=== PATIENT | male | born 1965 | race Caucasian/White ===

== ENCOUNTER 2024-06-20 13:14 | Outpatient (CLI) | payer OTHER, SELFPAY ==
--- NOTE | 2024-06-20 13:19 | CA_ITS ---
APPROVED REPORT EXAM: Comprehensive 2D, Doppler, and color-flow Echocardiogram Inside Sales Coordinator: Demi Arias RT(R) Ht: 5 ft 10 in Wt: 212lbs BSA: 2.14 BP: 109/74 mmHg Indications: COPD, lung nodule, RENO 2D Dimensions EF AP4 55.10 % GL Strain -12.1 % M-Mode Dimensions RVDd 3.34 cm (0.9-2.6) LA Diam 3.18 cm (1.9-4.0) LVDd 3.97 cm (3.5-5.7) LVDs 3.03 cm (3.5-5.7) IVSd 0.71 cm (0.6-1.1) PWd 0.71 cm (0.6-1.1) EF (Teich) 47.80% FS 23.70% EDV (Teich) 68.80 mL ESV (Teich) 35.90 mL LV Diastology E Decel Time 373 (160-240 msec) E/A Ratio 0.71 Mitral Valve MV A Velocity 57.0 (40-130 cm/s) E/A Ratio 0.71 Tricuspid Valve TR P. Velocity 351.00 cm/s RAP Estimate 10.00 mmHg RVSP 59.20 mmHg Left Ventricle The left ventricle is normal size. The left ventricular systolic function is low normal. There is increased LV wall thickness. Intermittent septal bounce is present. Transmitral Doppler flow pattern suggests impaired LV relaxation. LVEF is 50%. Right Ventricle Right ventricle is mildly dilated. Right ventricle is moderately hypokinetic. Atria The left atrium size is normal. The right atrium size is normal. There is no Doppler evidence of interatrial shunt. Aortic Valve The aortic valve is mildly thickened. There is no aortic valvular stenosis. No aortic regurgitation is present. Mitral Valve The mitral valve is normal in structure. No evidence of mitral valve stenosis. There is no mitral valve regurgitation noted. Tricuspid Valve The tricuspid valve leaflets are thin and pliable. Trace tricuspid regurgitation. RVSP is 45-50 mmHg. Pulmonic Valve The pulmonary valve is normal in structure. Trace pulmonic regurgitation. Great Vessels The aortic root is normal in size. The ascending aorta is not well-visualized. IVC is normal in size and collapses >50% with inspiration. Pericardium There is no pericardial effusion. Other Information Study Quality: Fair Conclusion Low normal LV systolic function (LVEF 50%). Intermittent septal bounce is present. Mild RV dilation with moderate reduction in RV function. No significant valvular stenosis or regurgitation. Elevated RVSP 45-50 mmHg. Further evaluation of RV dysfunction is suggested. The intermittent septal bounce may be suggestive of underlying constrictive pericarditis in the appropriate clinical setting. Clinical correlation is required. Electronically signed by : Marielena Todd MD 06/26/2024 13:03:21
--- NOTE | 2024-06-20 14:06 | CT_ITS ---
PROCEDURE INFORMATION: Exam: CT Chest With Contrast; Diagnostic Exam date and time: 06/20/2024 2:43 PM Age: 58 years old Clinical indication: Shortness of breath; Additional info: Copd, lung nodule, soboe TECHNIQUE: Imaging protocol: Diagnostic computed tomography of the chest with contrast. Radiation optimization: All CT scans at this facility use at least one of these dose optimization techniques: automated exposure control; mA and/or kV adjustment per patient size (includes targeted exams where dose is matched to clinical indication); or iterative reconstruction. Contrast material: ISOVUE; Contrast volume: 75 ml; Contrast route: IV; COMPARISON: No relevant prior studies available. FINDINGS: Lungs: Apical predominant moderate centrilobular emphysema. Scattered small spiculated nodules predominantly in the upper and mid lungs, for example measuring 14 x 15 mm in the right upper lobe, and 9 x 16 mm in the anterior left mid lung. Also present are scattered discrete and few confluent patchy opacities. Confluent interstitial reticular and geographic ground-glass opacities in the bilateral lower lobes.. Hqoe-ls-znyaoynb architectural distortion with associated bronchiectasis in the bilateral lower lobes. Pleural spaces: Unremarkable. No pneumothorax. No pleural effusion. Heart: Unremarkable. No cardiomegaly. No pericardial effusion. Lymph nodes: Several small calcified prevascular, bilateral hilar, and subcarinal nodes.. Vasculature: Unremarkable. No aortic aneurysm. Liver: Benign-appearing cyst in the inferior left hepatic lobe. No further follow-up needed. Upper abdomen otherwise unremarkable. Bones/joints: Unremarkable. No acute fracture. Soft tissues: Unremarkable. IMPRESSION: 1. Background moderate emphysema. 2. Scattered small spiculated nodules predominantly in the upper and mid lungs, for example measuring 14 x 15 mm in the right upper lobe, and 9 x 16 mm in the anterior left mid lung. Also present are scattered discrete and few confluent patchy opacities. Confluent interstitial reticular and geographic ground-glass opacities in the bilateral lower lobes. Azoh-so-siwfozoh architectural distortion with associated bronchiectasis in the bilateral lower lobes. These may be infectious (including atypical) or inflammatory. Underlying malignancy is not excluded. Please refer to prior studies if available. Recommend follow-up imaging to resolution. COMMENTS: The presence of pulmonary emphysema on CT is an independent risk factor for lung cancer. In the absence of a history or active diagnosis of lung cancer, it is recommended that this patient with emphysema be evaluated for enrollment in a low dose CT lung cancer screening program.
[2024-06-20 14:32] LABS: Blood Urea Nitrogen 12 mg/dl (9-20); Estimated Glomerular Filt Rate 99 ml/min (>60); GFR (African American) 120 ML/MIN (>60)
[2024-06-20] MEDS: IOPAMIDOL-370 (76%);100ML BOTTLE 75 ML IV (14:55)
[2024-06-20] MEDS: SODIUM CHLORIDE 0.9% 10ML SYR (RAD ONLY) 10 ML IV (14:55)
== END 2024-06-20 23:59 | disposition home or self-care (01) ==
LOC: RT 13:17
PROVIDERS: PCP Nurse Practitioner; Visit Provider Nurse Practitioner
DX: R06.02 Shortness of breath (principal); R91.1 Solitary pulmonary nodule; J44.9 Chronic obstructive pulmonary disease, unspecified; R93.1 Abnormal findings on diagnostic imaging of heart and coronary circulation
CPT/HCPCS: 71260; 82565; 84520; 93306; Q9967

== ENCOUNTER 2024-06-21 11:10 | Outpatient (CLI) | payer OTHER, SELFPAY ==
[2024-06-25 15:43] LABS: QuantiFERON-TB Gold Plus Negative (Negative)
== END 2024-06-21 23:59 | disposition home or self-care (01) ==
LOC: LAB 11:14
PROVIDERS: PCP Nurse Practitioner; Visit Provider Nurse Practitioner
DX: R93.89 Abnormal findings on diagnostic imaging of other specified body structures (principal); Z11.1 Encounter for screening for respiratory tuberculosis; Z78.9 Other specified health status; J44.9 Chronic obstructive pulmonary disease, unspecified; R06.02 Shortness of breath; Z72.0 Tobacco use
CPT/HCPCS: 36415; 86480; 87070; 87102; 87205; 87206

== ENCOUNTER 2024-06-27 12:21 | Outpatient (CLI) | payer OTHER, SELFPAY ==
[2024-06-27] MEDS: ALBUTEROL 0.083% 2.5 MG/3 ML NEB IH (13:33)
== END 2024-06-27 23:59 | disposition home or self-care (01) ==
LOC: RT 12:24
PROVIDERS: PCP Nurse Practitioner; Visit Provider Nurse Practitioner
DX: J44.9 Chronic obstructive pulmonary disease, unspecified (principal)
CPT/HCPCS: 94060; J7613

== ENCOUNTER 2024-09-12 14:27 | Observation (INO) | payer MEDICAID, SELFPAY ==
[2024-09-12] VITALS (11 sets, daily range): BP systolic 104–128; BP diastolic 70–92; PULSE 62–97; RESP 13–24; TEMP 36.5–37.1; O2SAT 79–99; BMI 30.1; BMI 30.9
--- NOTE | 2024-09-12 14:34 | [facility].EDCP ---
Discharge Plan Disposition Chief Complaint: Shortness of Breath/Dyspnea Prescriptions Prescriptions: No Action (DME) Aerochamber Plus Flow-Vu Spacer See Rx Instructions .ROUTE .MEDSUPPLY Qty: 1 Rx Instructions: As directed furosemide 40 mg tablet 40 mg PO DAILY PRN lisinopril 10 mg tablet 10 mg PO DAILY Patient Comments: TAKE 1 TABLET BY MOUTH DAILY. metoprolol succinate 25 mg tablet extended release 24 hr 25 mg PO DAILY Patient Comments: TAKE 1 TABLET BY MOUTH DAILY. albuterol sulfate 90 mcg/actuation HFA aerosol inhaler 2 puff inhalation Q4-6H PRN (Reason: shortness of breath or wheezing) Qty: 8.5 1RF aspirin 81 mg tablet,delayed release (DR/EC) 81 mg PO DAILY atorvastatin 20 mg tablet 20 mg PO DAILY Patient Comments: TAKE 1 TABLET BY MOUTH DAILY. dapagliflozin propanediol [Farxiga] 10 mg tablet 10 mg PO DAILY Qty: 90 1RF Trelegy Ellipta 100-62.5-25 mcg blister with device 1 inh inhalation DAILY Qty: 60 2RF Referrals Follow up/Referrals: Kandi Bernstein APRN [Primary Care Provider] - See instructions Print Language Print Language: Andorran Discharge ED Provider: Amado Ibarra [facility] <LAIS Angel - Last Filed: 09/12/24 14:37> General Chief Complaint: Shortness of Breath/Dyspnea Stated Complaint: SOA Time Seen by Provider: 09/12/24 14:32 Related Data Home Medications ?Medication ?Instructions ?Recorded ?Confirmed inhalational spacing device #1 ea 11/21/23 08/09/24 (Aerochamber Plus Flow-Vu) aspirin 81 mg tablet,delayed 81 mg PO DAILY 06/06/24 08/09/24 release atorvastatin 20 mg tablet 20 mg PO DAILY 06/06/24 08/09/24 furosemide 40 mg tablet 40 mg PO DAILY PRN 06/06/24 08/09/24 lisinopril 10 mg tablet 10 mg PO DAILY 06/06/24 08/09/24 metoprolol succinate 25 mg 25 mg PO DAILY 06/06/24 08/09/24 tablet,extended release 24 hr Previous Rx's ?Medication ?Instructions ?Recorded albuterol sulfate 90 mcg/actuation 2 puff inhalation Q4-6H PRN 12/13/24 aerosol inhaler shortness of breath or wheezing #8.5 grams dapagliflozin propanediol 10 mg 10 mg PO DAILY #90 tabs 08/19/24 tablet (Farxiga) fluticasone fur. 100 mcg-umeclid 1 inh inhalation DAILY #60 ea 09/02/24 62.5 mcg-vilant 25 mcg inhalat.powder (Trelegy Ellipta) Allergies Allergy/AdvReac Type Severity Reaction Status Date / Time No Known Allergies Allergy Verified 08/09/24 10:38 <Amado Ibarra MD - Last Filed: 09/12/24 15:52> General Mode of Arrival: Ambulatory Source of Information: Patient Limitations: No Limitations History of Present Illness HPI narrative: This is a 59-year-old male with a past medical history of COPD on 2.5 L nasal cannula chronically and interstitial lung disease who presents with shortness of breath. States that he has had worsening shortness of breath for the last week. Denies fever. Reports cough. Has been using nebulizer treatments at home more frequently. [facility] <ALIS Angel - Last Filed: 09/12/24 14:37> [facility] Disclaimer: The information contained in this section may have been updated after the patient was seen, as this information can be updated by other users. Medical History (Updated 08/09/24 @ 11:09 by Yasmin Ingram MD) Pleural thickening Multiple lung nodules on CT Pulmonary emphysema Paraseptal emphysema History of incarceration Abnormal CT of the chest Lung nodule SOBOE (shortness of breath on exertion) Dependence on nocturnal oxygen therapy ILD (interstitial lung disease) Abnormal echocardiogram Hypertension COPD (chronic obstructive pulmonary disease) Prediabetes Surgical History No history of previous surgery Family History Grandmother Cancer Grandfather Cancer Father Heart attack Social History Smoking Status: Former smoker alcohol intake: former current occupational status: employed Travel in the last 8 weeks: Inside the [place] Have you lived/traveled outside US in past 30 days?: No Contact w/someone who lives/traveled outside US past 30 days?: No Exposure to someone with infectious disease in past 14 days?: No Do you have a fever (greater than 100.4 F or 38 C)?: No Have you tested positive for COVID-19: No Exposed to someone with COVID-19 in past 14 days?: No Do you have a sore throat?: No Do you have a cough?: No Do you have any weakness?: No Do you have any diarrhea?: No Are you experiencing any unusual bleeding?: No Do you have any muscle aches/pain?: No Do you have any abdominal pain?: No Are you experiencing loss of taste or smell?: No Other Medical History Have you received the Pneumonia Vaccine: Yes <ALIS Angel - Last Filed: 09/12/24 14:37> ROS Obtained: Yes Systems reviewed as appropriate & no additional complaints except as documented Physical Exam <ALIS Angel - Last Filed: 09/12/24 14:37> General General appearance: alert and in no apparent distress Head Head exam: atraumatic and normal inspection Eye Eye exam: Present normal appearance, PERRL and EOMI ENT ENT exam: Present normal exam, normal oropharynx and mucous membranes moist Neck Neck exam: Present normal inspection, full ROM and trachea midline; Absent lymphadenopathy Chest Chest inspection: Present normal inspection and symmetric chest wall rise Respiratory Respiratory exam: Present normal lung sounds bilaterally; Absent accessory muscle use Cardiovascular Cardiovascular exam: Present regular rate, normal rhythm, normal heart sounds, +S1 and +S2 Abdominal Exam Abdominal exam: Present soft and normal bowel sounds; Absent tenderness, guarding or rebound Extremities Exam Extremities exam: Present normal inspection and full ROM Neurological Exam Neurological exam: Present alert, oriented X3 and CN II-XII intact Psychiatric Psychiatric exam: Present normal affect and normal mood Skin Skin exam: Present warm, dry and normal color Lymphatic Lymphatic Findings: no adenopathy <Amado Ibarra MD - Last Filed: 09/12/24 15:52> General General appearance: alert Comment: Appears to be in respiratory distress, tripoding Respiratory Respiratory exam: Present respiratory distress (Diminished lung sounds bilaterally, and expiratory wheezing) HEART Score <Amado Ibarra MD - Last Filed: 09/12/24 15:52> HEART Score HEART Score assessment performed?: No Critical Care <Amado Ibarra MD - Last Filed: 09/12/24 15:52> Critical Care Time Critical Care Time: No Medical Decision Making <ALIS Angel - Last Filed: 09/12/24 14:37> Vital Signs Vital Signs: 09/12/24 14:30 09/12/24 15:00 09/12/24 15:30 Temperature 98.8 F Temperature Source Oral Pulse Rate 92 H 90 Pulse Rate [Right] 97 H Respiratory Rate 24 Blood Pressure 118/85 123/80 Blood Pressure [Right Arm] 104/74 L Blood Pressure Mean [Right Arm] 84 02 Sat by Pulse Oximetry 79 L 94 L 98 Oxygen Delivery Method Room Air Nasal Cannula Nasal Cannula Oxygen Flow Rate (LPM) 2.5 2.5 Lab Data Labs: Lab Results 09/12/24 14:37: VBG pH 7.38, VBG pCO2 60.8 H, VBG pO2 52.5 H, VBG HCO3 35.2 H, VBG Total CO2 37.0 H, VBG O2 Saturation 87.5 H, VBG Base Excess 10.0 H, VBG Lactic Acid 2.0 09/12/24 14:54: WBC 8.0, RBC 4.84, Hgb 13.1 L, Hct 43.7, MCV 90.3, MCH 27.1, MCHC 30.0 L, RDW 14.2, Plt Count 208, MPV 9.7, Neut % (Auto) 73.9, Lymph % (Auto) 7.2 L, Vigo % (Auto) 8.2, Eos % (Auto) 9.5, Baso % (Auto) 0.6, Neut # (Auto) 5.9, Lymph # (Auto) 0.6 L, Vigo # (Auto) 0.7, Eos # (Auto) 0.8 H, Baso # (Auto) 0.1, Sodium 138, Potassium 3.9, Chloride 96 L, Carbon Dioxide 39 H, Anion Gap 6.9, BUN 17, Creatinine 0.80, Estimated Creat Clear 132, Estimated GFR 99, Est GFR ( Amer) 119, Glucose 163 H, Calcium 9.2, Total Bilirubin 0.6, AST 29, ALT 20, Alkaline Phosphatase 65, Total Protein 6.7, Albumin 3.5, Globulin 3.2, Albumin/Globulin Ratio 1.1 09/12/24 14:54 09/12/24 14:54 Response Orders (Tests/Meds): ED MEDICATIONS Discontinued Medications Generic Name Dose Route Start Last Admin Trade Name Randal PRN Reason Stop Dose Admin Albuterol/Ipratropium 9 ml 09/12/24 14:37 09/12/24 15:15 Ipratropium/Albuterol 3 Ml Neb IH 09/12/24 14:38 9 ml ONCE ONE Administration Methylprednisolone Sodium Succinate 125 mg 09/12/24 14:37 09/12/24 15:15 Methylprednisolone Sod Succ 125mg Vial IV 09/12/24 14:38 125 mg ONCE ONE Administration ORDERS Category Date Time Status Chest XR 2 view (NOT portable) [XR chest 2V] Stat Exams 09/12/24 14:37 Completed CBC w/Auto Diff [Complete Blood Count Auto Diff] Stat Lab 09/12/24 14:54 Completed CMP [Comprehensive Metabolic Panel] Stat Lab 09/12/24 14:54 Completed HIV Combo Routine Lab 09/12/24 14:54 Received Hepatitis C Ab Qual. W/ RFX Routine Lab 09/12/24 14:54 Received VBG [Venous Blood Gas] Stat RT 09/12/24 14:37 Completed <Amado Ibarra MD - Last Filed: 09/12/24 15:52> Medical Records Medical records reviewed: Yes I reviewed the patient's medical records. MR Comment: Pulmonology clinic visit from 08/09/2024 notable for patient's past medical history as noted above. Patient on Trelegy Cameron Inquiry Pt receiving controlled substance: No Vital Signs Vital Signs: 09/12/24 14:30 09/12/24 15:00 09/12/24 15:30 Temperature 98.8 F Temperature Source Oral Pulse Rate 92 H 90 Pulse Rate [Right] 97 H Respiratory Rate 24 Blood Pressure 118/85 123/80 Blood Pressure [Right Arm] 104/74 L Blood Pressure Mean [Right Arm] 84 02 Sat by Pulse Oximetry 79 L 94 L 98 Oxygen Delivery Method Room Air Nasal Cannula Nasal Cannula Oxygen Flow Rate (LPM) 2.5 2.5 Lab Data Labs: Lab Results 09/12/24 14:37: VBG pH 7.38, VBG pCO2 60.8 H, VBG pO2 52.5 H, VBG HCO3 35.2 H, VBG Total CO2 37.0 H, VBG O2 Saturation 87.5 H, VBG Base Excess 10.0 H, VBG Lactic Acid 2.0 09/12/24 14:54: WBC 8.0, RBC 4.84, Hgb 13.1 L, Hct 43.7, MCV 90.3, MCH 27.1, MCHC 30.0 L, RDW 14.2, Plt Count 208, MPV 9.7, Neut % (Auto) 73.9, Lymph % (Auto) 7.2 L, Vigo % (Auto) 8.2, Eos % (Auto) 9.5, Baso % (Auto) 0.6, Neut # (Auto) 5.9, Lymph # (Auto) 0.6 L, Vigo # (Auto) 0.7, Eos # (Auto) 0.8 H, Baso # (Auto) 0.1, Sodium 138, Potassium 3.9, Chloride 96 L, Carbon Dioxide 39 H, Anion Gap 6.9, BUN 17, Creatinine 0.80, Estimated Creat Clear 132, Estimated GFR 99, Est GFR ( Amer) 119, Glucose 163 H, Calcium 9.2, Total Bilirubin 0.6, AST 29, ALT 20, Alkaline Phosphatase 65, Total Protein 6.7, Albumin 3.5, Globulin 3.2, Albumin/Globulin Ratio 1.1 Response Orders (Tests/Meds): ED MEDICATIONS Discontinued Medications Generic Name Dose Route Start Last Admin Trade Name Freq PRN Reason Stop Dose Admin Albuterol/Ipratropium 9 ml 09/12/24 14:37 09/12/24 15:15 Ipratropium/Albuterol 3 Ml [facility] 09/12/24 14:38 9 ml ONCE ONE Administration Methylprednisolone Sodium Succinate 125 mg 09/12/24 14:37 09/12/24 15:15 Methylprednisolone Sod Succ 125mg Vial IV 09/12/24 14:38 125 mg ONCE ONE Administration ORDERS Category Date Time Status Chest XR 2 view (NOT portable) [XR chest 2V] Stat Exams 09/12/24 14:37 Completed CBC w/Auto Diff [Complete Blood Count Auto Diff] Stat Lab 09/12/24 14:54 Completed CMP [Comprehensive Metabolic Panel] Stat Lab 09/12/24 14:54 Completed HIV Combo Routine Lab 09/12/24 14:54 Received Hepatitis C Ab Qual. W/ RFX Routine Lab 09/12/24 14:54 Received VBG [Venous Blood Gas] Stat RT 09/12/24 14:37 Completed ECG Data Tracing #1: Attestation: I reviewed this ECG and interpreted as documented below: ECG Narrative: Sinus rhythm at a rate of 96 with occasional supraventricular premature complexes, QTc 438, no STEMI MDM Narrative Medical Decision Narrative: In summary, this 59-year-old male with a past medical history of COPD and interstitial lung disease on 2.5 L nasal cannula chronically presents to the emergency department today with worsening shortness of breath. On initial evaluation patient is afebrile, appears to be in significant respiratory distress with diminished lung sounds bilaterally and expiratory wheezing, satting 74% on room air. Differential diagnosis includes but is not limited to COPD exacerbation, pneumonia, pleural effusion. Based on these concerns, I ordered CBC, CMP, VBG, chest x-ray, EKG. ECG personally interpreted as noted above. Patient received 125 Solu-Medrol and DuoNebs x 3 for treatment. Labs personally reviewed demonstrate normal venous pH of 7.38 and pCO2 of 60 which is likely his baseline, compensated with bicarb of 35, normal white blood cell count, unremarkable CMP. XR personally interpreted demonstrates bilateral airspace opacities that appear to be worsened compared to prior CT imaging. At the time of shift change, reevaluation and radiology report of x-ray was pending. Care handed off to Dr. Crarera. See below for ultimate impression and dispo.
--- NOTE | 2024-09-12 14:37 | XR_ITS ---
FINAL REPORT CLINICAL HISTORY: Shortness of breath COMPARISON: None FINDINGS: There is a markedly abnormal appearance of the lungs. There are large right perihilar and left upper lobe opacities, which may be related to chronic infiltrates and/or scarring. Mass is not entirely excluded. There is no evidence of effusion or other pleural disease. The mediastinum has a normal appearance. The cardiac silhouette is unremarkable. IMPRESSION: Extensive bilateral pulmonary opacities which are probably a sequela from previous infection. Chest CT correlation recommended with contrast. Reviewed, Interpreted and Dictated by Alfonso San MD Transcribed by Steff Rosas Authenticated and [facility]
--- NOTE | 2024-09-12 14:44 | ECG_ITS ---
APPROVED REPORT Exam: Resting ECG HR:96 bpm ECG Measurements Heart Rate 96 AXES RI 135 P 76 QRSd 83 QRS 72 QT 385 T 30 QTc 438 Conclusion SINUS RHYTHM WITH OCCASIONAL SUPRAVENTRICULAR PREMATURE COMPLEXES ST DEVIATION AND MODERATE T-WAVE ABNORMALITY, CONSIDER ANTEROLATERAL ISCHEMIA [-0.1+ mV T-WAVE IN V3-V6] ST DEVIATION AND MODERATE T-WAVE ABNORMALITY, CONSIDER INFERIOR ISCHEMIA [-0.1+ mV T-WAVE IN II/aVF] ABNORMAL ECG UNCONFIRMED REPORT Electronically signed by : Amado Ibarra, 09/12/2024 15:56:59
[2024-09-12 15:04] LABS: VBG HCO3 35.2 mmol/L (23-30); VBG Oxygen Saturation 87.5 % (50-70); VBG PCO2 60.8 mmol/L (35-51); VBG PH 7.38 mmol/L (7.31-7.41); VBG PO2 52.5 mmol/L (28-40)
[2024-09-12 15:06] LABS: Basophils # 0.1 K/mm3 (0-0.2); Basophils % 0.6 % (0.1-2.0); Eosinophils # 0.8 K/mm3 (0.0-0.4); Eosinophils % 9.5 % (0.1-12.0); Hematocrit 43.7 % (42.0-52.0); Hemoglobin 13.1 g/dL (14.1-18.0); Lymphocytes # 0.6 K/mm3 (0.7-4.5); Lymphocytes % 7.2 % (10-50); Mean Corpuscular Hemoglobin 27.1 pg (27.0-31.2); Mean Corpuscular Volume 90.3 fl (80-94); Mean Platelet Volume 9.7 fl (7.4-10.4); Monocytes # 0.7 K/mm3 (0.1-1.0); Monocytes % 8.2 % (1.7-9.3); Neutrophils # 5.9 K/mm3 (1.8-7.8); Neutrophils % 73.9 % (37.0-80.0); Platelet Count 208 K/mm3 (142-424); Red Blood Count 4.84 M/mm3 (4.60-6.20); Red Cell Distribution Width 14.2 % (11.5-17.5)
[2024-09-12] MEDS: IPRATROPIUM/ALBUTEROL 3 ML NEB 9 ML IH (15:15)
[2024-09-12] MEDS: METHYLPREDNISOLONE SOD SUCC 125MG VIAL 125 MG IV (15:15)
[2024-09-12 15:40] LABS: Albumin Level 3.5 g/dl (3.5-5.0); Chloride 96 mmol/L (98-107)
[2024-09-12 15:41] LABS: Potassium 3.9 mmoL/L (3.5-5.1); Sodium 138 mmol/L (136-145)
[2024-09-12 15:43] LABS: Blood Urea Nitrogen 17 mg/dl (9-20); Creatinine Clearance Estimated 132 mL/min (50-200); Estimated Glomerular Filt Rate 99 ml/min (>60); GFR (African American) 119 ML/MIN (>60)
[2024-09-12 15:44] LABS: Alanine Aminotransferase 20 U/L (12-78); Albumin/Globulin Ratio 1.1 (1.1-1.8); Alkaline Phosphatase 65 U/L (38-126); Anion Gap 6.9 mEq/L (5-15); Aspartate Amino Transferase 29 U/L (17-59); Bilirubin,Total 0.6 mg/dl (0.2-1.3); Calcium 9.2 mg/dl (8.4-10.2); Carbon Dioxide 39 mmol/L (22.0-30.0); Globulin 3.2 g/dL (1.3-3.2); Glucose 163 mg/dl (74-100); Total Protein,Serum 6.7 g/dl (6.3-8.2)
--- NOTE | 2024-09-12 15:56 | PC.NURSE ---
I rounded on the pt. no new complaints at this time. pt states he is feeling somewhat better. call torres in reach.
--- NOTE | 2024-09-12 16:01 | CT_ITS ---
PROCEDURE INFORMATION: Exam: CTA Chest With Contrast Exam date and time: 09/12/2024 4:13 PM Age: 59 years old Clinical indication: Abnormal findings; Abnormal radiologic exam of lung or chest; Additional info: Resp failure, abnormal XR TECHNIQUE: Imaging protocol: Computed tomographic angiography of the chest with contrast. Exam focused on the arteries. 3D rendering (Not supervised by radiologist): MIP and/or 3D reconstructed images were created by the technologist. Radiation optimization: All CT scans at this facility use at least one of these dose optimization techniques: automated exposure control; mA and/or kV adjustment per patient size (includes targeted exams where dose is matched to clinical indication); or iterative reconstruction. Contrast material: ISOVUE 370; Contrast volume: 70 ml; Contrast route: INTRAVENOUS (IV); COMPARISON: 1. CT CHEST W CON 06/20/2024 2:43 PM 2. CR XR CHEST 2V 09/12/2024 2:58 PM FINDINGS: Pulmonary arteries: Normal. No pulmonary emboli. Aorta: Unremarkable. No aortic aneurysm. No aortic dissection. Lungs: Emphysematous changes redemonstrated. Bilateral chronic appearing fibro changes and scarring including bronchiectasis and architectural distortion redemonstrated. Associated confluent consolidative opacities are noted in the region of the superior segment right lower lobe in the posterolateral subpleural left lower lobe potentially increased in the interval. A spiculated appearing nodular looking density noted in the right upper lobe measuring 15 mm on axial image 45 and coronal image 53 that previously measured 11 mm. A 11 mm spiculated appearing density in the anterior left upper lobe on image 41 previously measured 9 mm. Patchy ground-glass opacities noted throughout the lower lobes that appears increased in the interval. Incidental small to moderate-sized loculated appearing subpleural fluid collections along the anterior aspect of the mediastinum on the left adjacent to the posterior left upper lobe measuring up to 24 mm in thickness and the posterior left mediastinal region adjacent to the left lower lobe measuring up to 20 mm increased in the interval. Pleural spaces: Unremarkable. No pneumothorax. No pleural effusion. Heart: Unremarkable. No cardiomegaly. No pericardial effusion. Coronary arteries: Mild coronary artery calcifications are noted. Lymph nodes: Moderately enlarged subcarinal nodes measuring up to 2.1 cm in short axis and previously measured 18 mm. Enlarged AP window node measuring 12 mm and previously measured 10 mm. Enlarged right paratracheal node measuring 10 mm that previously measured 8 mm. Prominent calcified bilateral hilar nodes similar to previous. Calcified mediastinal nodes in the AP window and right paratracheal also noted. Liver: Stable small cyst in the left lobe of the liver. Bones/joints: Unremarkable. No acute fracture. Soft tissues: Unremarkable. IMPRESSION: 1. No evident PE. 2. Extensive bilateral chronic fibrotic changes including chronic appearing consolidating opacities with associated bronchiectasis and architectural distortion that may reflect some type of chronic infectious or inflammatory process. The possibility of sarcoidosis should be considered among other possibilities. Interval increase in the consolidating components identified. Some of this difference may be technical related but progression cannot be excluded. The possibility of the consolidating areas might be due to tumor thought unlikely but not completely excluded. 3. Spiculated appearing densities are noted in both upper lobes measuring 15 mm on the right and 11 mm on the left with interval increase. This might reflect pseudo nodules from scarring but developing spiculated nodules related to tumor also possible. Correlation with CT PET study or tissue sampling should be considered. Three-month follow-up CT also advised. 4. Bilateral lower lobe ground-glass opacities with interval progression that might reflect acute infectious or inflammatory process superimposed on the chronic changes. 5. Mediastinal lymphadenopathy with interval worsening. 6. Incidental small to moderate-size loculated pleural fluid collections on the left with interval increase in size that may reflect loculated fluid related to the chronic fibrotic changes. 7. Additional nonemergent findings as above. COMMENTS: The presence of pulmonary emphysema on CT is an independent risk factor for lung cancer. In the absence of a history or active diagnosis of lung cancer, it is recommended that this patient with emphysema be evaluated for enrollment in a low dose CT lung cancer screening program.
[2024-09-12] MEDS: IOPAMIDOL-370 (76%);100ML BOTTLE 70 ML IV (16:14)
[2024-09-12] MEDS: SODIUM CHLORIDE 0.9% 10ML SYR (RAD ONLY) 10 ML IV (16:14)
[2024-09-12] MEDS: 0.9 % SODIUM CHLORIDE 50 ML VIAL IV (16:14)
[2024-09-12 16:24] LABS: HIV Combo NEGATIVE (Negative)
[2024-09-12 16:33] LABS: Hepatitis C Ab Qual. W/ RFX NEGATIVE (Negative)
[2024-09-12] MEDS: AMOXICILLIN/CLAVULANATE POTASSIUM 875/125MG TABLET 1 EACH PO (17:33)
[2024-09-12] MEDS: AZITHROMYCIN 250MG TABLET 500 MG PO (17:33)
--- NOTE | 2024-09-12 17:36 | PC.NURSE ---
I called dietary to request a dinner tray for the pt.
--- NOTE | 2024-09-12 17:42 | PC.NURSE ---
PEDIATRICS PHYSICIAN NOTIFIED OF ADMISSION
--- NOTE | 2024-09-12 18:04 | PC.NURSE ---
Report called to [facility]
--- NOTE | 2024-09-12 20:32 | P.HP_ITS ---
<Statement entered by Rickey Suggs MD - 09/18/24 10:30> Personally examined patient and agree with the plan of care as outlined by the SCRAP HOIST OPERATOR. History of Present Illness *Admission Date: 09/12/24 *Reason for visit:: Shortness of breath *History of present illness: This is a 59-year-old male with a past medical history of tobacco abuse, COPD, interstitial lung disease, hypertension, CAD who presents emergency department today with complaints of shortness of breath. He reports ongoing shortness of breath that is been persistently worse. States that 2 days ago he felt so ill that he could come to the hospital. States that he started to feel a little better today so he decided to seek treatment. Did see pulmonology in middle of July.. 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 Does report quitting smoking recently. Emergency Department workup notable for hypoxia requiring 2 L nasal cannula. Significant wheezing noted on exam. Mild CO2 retention with a pCO2 of 60 but compensated with a pH of 7.38. Will obtain respiratory pathogen panel. He has been treated with steroids and bronchodilators and will be admitted to the hospital service [facility] Disclaimer: The information contained in this section may have been updated after the patient was seen, as this information can be updated by other users. Medical History (Updated 09/12/24 @ 20:42 by BELA Early) Pleural thickening Multiple lung nodules on CT Pulmonary emphysema Paraseptal emphysema History of incarceration Abnormal CT of the chest Lung nodule SOBOE (shortness of breath on exertion) Dependence on nocturnal oxygen therapy ILD (interstitial lung disease) Abnormal echocardiogram Hypertension COPD (chronic obstructive pulmonary disease) Prediabetes Surgical History No history of previous surgery Family History Grandmother Cancer Grandfather Cancer Father Heart attack Social History (Updated 09/12/24 @ 18:48 by Nneka Walkre, RN) Smoking Status: Former smoker alcohol intake: former current occupational status: employed Travel in the last 8 weeks: Inside the [place] Have you lived/traveled outside US in past 30 days?: No Contact w/someone who lives/traveled outside US past 30 days?: No Exposure to someone with infectious disease in past 14 days?: No Do you have a fever (greater than 100.4 F or 38 C)?: No Have you tested positive for COVID-19: No Exposed to someone with COVID-19 in past 14 days?: No Do you have a sore throat?: No Do you have a cough?: No Do you have any weakness?: No Are you experiencing any nausea/vomitting?: No Do you have any diarrhea?: No Are you experiencing any unusual bleeding?: No Do you have any muscle aches/pain?: No Do you have any abdominal pain?: No Are you experiencing loss of taste or smell?: No Other Medical History Have you received the Flu Vaccine for this season: No Have you received the Pneumonia Vaccine: No Review of Systems Review of Systems Review of systems:: pertinent systems reviewed and negative unless documented below Review of systems (narrative): Negative except for HPI Meds Home Medications and Allergies Home Medications ?Medication ?Instructions ?Recorded ?Confirmed ?Type inhalational spacing device #1 ea 11/21/23 08/09/24 History (Aerochamber Plus Flow-Vu) aspirin 81 mg tablet,delayed 81 mg PO DAILY 06/06/24 08/09/24 History release atorvastatin 20 mg tablet 20 mg PO DAILY 06/06/24 08/09/24 History furosemide 40 mg tablet 40 mg PO DAILY PRN 06/06/24 08/09/24 History lisinopril 10 mg tablet 10 mg PO DAILY 06/06/24 08/09/24 History metoprolol succinate 25 mg 25 mg PO DAILY 06/06/24 08/09/24 History tablet,extended release 24 hr albuterol sulfate 90 mcg/actuation 2 puff inhalation Q4-6H PRN 08/09/24 08/09/24 Rx aerosol inhaler shortness of breath or wheezing #8.5 grams dapagliflozin propanediol 10 mg 10 mg PO DAILY #90 tabs 08/19/24 Rx tablet (Farxiga) fluticasone fur. 100 mcg-umeclid 1 inh inhalation DAILY #60 ea 09/02/24 Rx 62.5 mcg-vilant 25 mcg inhalat.powder (Trelegy Ellipta) New Prescriptions to Start Prescriptions: Allergies Allergy/AdvReac Type Severity Reaction Status Date / Time No Known Allergies Allergy Verified 08/09/24 10:38 Exam Data for Last 24 hours Vital signs and Labs for Last 24 Hours: Temp Pulse Resp BP Pulse Ox O2 Del Method O2 Flow Rate 97.8 F 62 20 110/70 92 L Nasal Cannula 2 09/12/24 18:48 09/12/24 18:48 09/12/24 18:48 09/12/24 18:48 09/12/24 18:48 09/12/24 18:48 09/12/24 18:48 Laboratory Results - last 24 hr 09/12/24 14:37: VBG pH 7.38, VBG pCO2 60.8 H, VBG pO2 52.5 H, VBG HCO3 35.2 H, VBG Total CO2 37.0 H, VBG O2 Saturation 87.5 H, VBG Base Excess 10.0 H, VBG Lactic Acid 2.0 09/12/24 14:54: WBC 8.0, RBC 4.84, Hgb 13.1 L, Hct 43.7, MCV 90.3, MCH 27.1, MCHC 30.0 L, RDW 14.2, Plt Count 208, MPV 9.7, Neut % (Auto) 73.9, Lymph % (Auto) 7.2 L, [place] % (Auto) 8.2, Eos % (Auto) 9.5, Baso % (Auto) 0.6, Neut # (Auto) 5.9, Lymph # (Auto) 0.6 L, [place] # (Auto) 0.7, Eos # (Auto) 0.8 H, Baso # (Auto) 0.1, Sodium 138, Potassium 3.9, Chloride 96 L, Carbon Dioxide 39 H, Anion Gap 6.9, BUN 17, Creatinine 0.80, Estimated Creat Clear 132, Estimated GFR 99, Est GFR ( Amer) 119, Glucose 163 H, Calcium 9.2, Total Bilirubin 0.6, AST 29, ALT 20, Alkaline Phosphatase 65, Total Protein 6.7, Albumin 3.5, Globulin 3.2, Albumin/Globulin Ratio 1.1, HCV Ab DONTRELL w/Rflx PCR Qn Negative, HIV Ag/Ab Combo Qual Negative I & O for Last 24 hours: Intake & Output 09/09/24 09/10/24 09/11/24 09/12/24 23:59 23:59 23:59 23:59 Weight 97.607 kg Constitutional Constitutional: no acute distress *Routine HEENT Exam Head: Present normocephalic Eye: Present EOMI and PERRL ENT: Present mucous membranes moist *Routine Neck Exam Neck: Present supple; Absent lymphadenopathy *Routine Respiratory Exam Respiratory: Present wheezes and crackles *Routine Cardiovascular Exam Cardiovascular: Present RRR *Routine Abdominal Exam Abdominal: Present soft and normoactive bowel sounds; Absent tenderness *Routine Rectal Exam Rectal:: deferred *Routine Genitalia Exam Genitalia:: deferred *Routine Extremities Exam Extremities: Absent cyanosis, clubbing or edema *Routine Skin Exam Skin: Present warm; Absent rash *Routine Neurological Exam Neurological: Present alert and oriented X3 Assessment and Plan *Assessment and plan (1) Acute hypoxemic respiratory failure: Status: Acute Category: Medical Code(s): J96.01 - Acute respiratory failure with hypoxia (2) COPD (chronic obstructive pulmonary disease): Status: Acute Qualifiers: COPD type: COPD with acute exacerbation Qualified Code(s): J44.1 - Chronic obstructive pulmonary disease with (acute) exacerbation Category: Medical Code(s): J44.9 - Chronic obstructive pulmonary disease, unspecified (3) Hypertension: Status: Acute Qualifiers: Hypertension type: primary hypertension Qualified Code(s): I10 - Essential (primary) hypertension Category: Medical Code(s): I10 - Essential (primary) hypertension (4) Pulmonary emphysema: Status: Acute Qualifiers: Emphysema type: other Qualified Code(s): J43.8 - Other emphysema Category: Medical Code(s): J43.9 - Emphysema, unspecified Plan # Acute respiratory failure with hypoxia #COPD exacerbation Pulse oximetry monitoring Oxygen therapy to maintain appropriate oxygen saturations Continue bronchodilator Continue corticosteroids Continue azithromycin Pulmonology consult Respiratory pathogen panel pending #Hypertension Continue home antihypertensives #HLD Continue home statin
[2024-09-12] MEDS: ATORVASTATIN 20MG TABLET 20 MG PO (20:51)
[2024-09-12] MEDS: IPRATROPIUM/ALBUTEROL 3 ML NEB IH (22:42)
[2024-09-13] VITALS (12 sets, daily range): BP systolic 97–127; BP diastolic 57–79; PULSE 70–97; RESP 16–20; TEMP 36.3–36.6; O2SAT 90–96; BMI 29.1
[2024-09-13] MEDS: IPRATROPIUM/ALBUTEROL 3 ML NEB IH ×6 (02:07→22:08)
[2024-09-13 04:45] LABS: Adenovirus,PCR Not Detected (NotDetected); Bordetella Pertussis Not Detected (NotDetected); Chlamydophila Pneumoniae, PCR Not Detected (NotDetected); Coronavirus 19, PCR Not Detected (NotDetected); Coronavirus 229E Not Detected (NotDetected); Coronavirus NL63 Not Detected (NotDetected); Coronavirus OC43 Not Detected (NotDetected); Coronovirus HKU1,PCR Not Detected (NotDetected); Human Metapneumovirus Not Detected (NotDetected); Influenza A, PCR Not Detected (NotDetected); Influenza AH1, 2009 Not Detected (NotDetected); Influenza AH1, PCR Not Detected (NotDetected); Influenza AH3,PCR Not Detected (NotDetected); Influenza B, PCR Not Detected (NotDetected); Mycoplasma Pneumoniae, PCR Not Detected (NotDetected); Parainfluenza 1, PCR Not Detected (NotDetected); Parainfluenza 2, PCR Not Detected (NotDetected); Parainfluenza 3, PCR Not Detected (NotDetected); Parainfluenza 4, PCR Not Detected (NotDetected); Respiratory Syncytial Virus Not Detected (NotDetected); Rhinovirus/Enterovirus Not Detected (NotDetected)
[2024-09-13 07:08] LABS: Anion Gap 13.7 mEq/L (5-15); Basophils % 0.1 % (0.1-2.0); Blood Urea Nitrogen 17 mg/dl (9-20); Calcium 8.9 mg/dl (8.4-10.2); Carbon Dioxide 35 mmol/L (22.0-30.0); Chloride 96 mmol/L (98-107); Creatinine Clearance Estimated 147 mL/min (50-200); Estimated Glomerular Filt Rate 115 ml/min (>60); GFR (African American) 139 ML/MIN (>60); Glucose 178 mg/dl (74-100); Hemoglobin 12.4 g/dL (14.1-18.0); Lymphocytes # 0.4 K/mm3 (0.7-4.5); Lymphocytes % 4.4 % (10-50); Mean Corpuscular HGB Conc 30.2 g/dL (31.8-35.4); Mean Corpuscular Hemoglobin 27.8 pg (27.0-31.2); Mean Corpuscular Volume 91.9 fl (80-94); Mean Platelet Volume 10.4 fl (7.4-10.4); Monocytes # 0.2 K/mm3 (0.1-1.0); Monocytes % 2.5 % (1.7-9.3); Neutrophils # 7.3 K/mm3 (1.8-7.8); Neutrophils % 92.4 % (37.0-80.0); Platelet Count 185 K/mm3 (142-424); Potassium 4.7 mmoL/L (3.5-5.1); Red Blood Count 4.46 M/mm3 (4.60-6.20); Red Cell Distribution Width 13.8 % (11.5-17.5); Sodium 140 mmol/L (136-145); White Blood Count 7.9 K/mm3 (4.8-10.8)
[2024-09-13 07:10] LABS: MANUAL DIFFERENTIAL MANUAL DIFFERENTIAL (MANUAL DIFF)
[2024-09-13] MEDS: LISINOPRIL 10MG TABLET 10 MG PO (08:31)
[2024-09-13] MEDS: METOPROLOL TARTRATE 25MG TABLET 25 MG PO (08:31)
[2024-09-13] MEDS: predniSONE 20MG TAB 40 MG PO (08:31)
[2024-09-13] MEDS: ASPIRIN 81MG CHEWABLE TABLET 81 MG PO (08:31)
--- NOTE | 2024-09-13 09:52 | P.CONS_ITS ---
History of Present Illness History of present illness: Mr. Gilbert is a 59-year-old male greater than [id number] smoking history following in pulmonary clinic for exertional dyspnea and COPD multiple pulmonary nodules interstitial lung disease presented to the ER with worsening respiratory distress and pulmonary was called for further evaluation and management. Patient admits progressively worsening respiratory distress for the last 2 weeks with associated with bodyaches and generalized weakness but denies any worsening cough/productive phlegm. Denies any known sick contacts [facility] [place] Disclaimer: The information contained in this section may have been updated after the patient was seen, as this information can be updated by other users. Medical History (Updated 09/12/24 @ 20:42 by BELA Early) Pleural thickening Multiple lung nodules on CT Pulmonary emphysema Paraseptal emphysema History of incarceration Abnormal CT of the chest Lung nodule SOBOE (shortness of breath on exertion) Dependence on nocturnal oxygen therapy ILD (interstitial lung disease) Abnormal echocardiogram Hypertension COPD (chronic obstructive pulmonary disease) Prediabetes Surgical History No history of previous surgery Family History Grandmother Cancer Grandfather Cancer Father Heart attack Social History (Updated 09/12/24 @ 18:48 by Nneka Walker, RN) Smoking Status: Former smoker alcohol intake: former current occupational status: employed Travel in the last 8 weeks: Inside the [place] Have you lived/traveled outside US in past 30 days?: No Contact w/someone who lives/traveled outside US past 30 days?: No Exposure to someone with infectious disease in past 14 days?: No Do you have a fever (greater than 100.4 F or 38 C)?: No Have you tested positive for COVID-19: No Exposed to someone with COVID-19 in past 14 days?: No Do you have a sore throat?: No Do you have a cough?: No Do you have any weakness?: No Are you experiencing any nausea/vomitting?: No Do you have any diarrhea?: No Are you experiencing any unusual bleeding?: No Do you have any muscle aches/pain?: No Do you have any abdominal pain?: No Are you experiencing loss of taste or smell?: No Review of Systems Constitutional Constitutional: Reports anorexia, Reports body ache(s), Reports fatigue and Reports weakness Eyes Eyes: Denies eye discharge, Denies dry eyes, Denies irritation and Denies itchy eyes ENT Ears, Nose, Mouth, and Throat: Denies epistaxis, Denies facial pain, Denies lip swelling and Denies throat swelling *Cardiovascular Cardiovascular: Reports dyspnea and Reports dyspnea on exertion *Respiratory Respiratory: Denies change in phlegm color, Reports chest congestion, Reports cough, Reports dyspnea, Reports dyspnea on exertion, Denies excessive phlegm production and Reports wheezing *Gastrointestinal Gastrointestinal: Denies abdominal pain, Denies belching and Denies cramping *Musculoskeletal Musculoskeletal: Reports back pain, Reports myalgias and Reports other (No small joint swelling or Pain) *Neurologic Neurologic: Reports weakness Psychiatric Psychiatric: Denies homicidal ideation and Denies suicidal ideation Endocrine Endocrine: Reports fatigue and Denies heat intolerance Hematologic/Lymphatic Hematologic/Lymphatic: Denies easy bleeding and Denies lymphadenopathy Allergic/Immunologic Allergic/Immunologic: Denies itchy eyes, Denies lip swelling, Denies throat swelling and Reports wheezing Pulmonology Exam Inpatient Vital signs and Labs for Last 24 Hours: Temp Pulse Resp BP Pulse Ox O2 Del Method O2 Flow Rate 97.6 F 87 20 116/68 95 Nasal Cannula 3 09/13/24 08:00 09/13/24 08:00 09/13/24 08:00 09/13/24 08:00 09/13/24 08:00 09/13/24 09:00 09/13/24 09:00 Laboratory Results - last 24 hr 09/12/24 14:37: VBG pH 7.38, VBG pCO2 60.8 H, VBG pO2 52.5 H, VBG HCO3 35.2 H, V BG Total CO2 37.0 H, VBG O2 Saturation 87.5 H, VBG Base Excess 10.0 H, VBG Lactic Acid 2.0 09/12/24 14:54: WBC 8.0, RBC 4.84, Hgb 13.1 L, Hct 43.7, MCV 90.3, MCH 27.1, M CHC 30.0 L, RDW 14.2, Plt Count 208, MPV 9.7, Neut % (Auto) 73.9, Lymph % (Auto) 7.2 L, [place] % (Auto) 8.2, Eos % (Auto) 9.5, Baso % (Auto) 0.6, Neut # (Auto) 5.9, Lymph # (Auto) 0.6 L, [place] # (Auto) 0.7, Eos # (Auto) 0.8 H, Baso # (Auto) 0.1, Sodium 138, Potassium 3.9, Chloride 96 L, Carbon Dioxide 39 H, Anion Gap 6.9, BUN 17, Creatinine 0.80, Estimated Creat Clear 132, Estimated GFR 99, Est GFR ( Amer) 119, Glucose 163 H, Calcium 9.2, Total Bilirubin 0.6, AST 29, ALT 20, Alkaline Phosphatase 65, Total Protein 6.7, Albumin 3.5, Globulin 3.2, Albumin/Globulin Ratio 1.1, HCV Ab DONTRELL w/Rflx PCR Qn Negative, HIV Ag/Ab Combo Qual Negative 09/13/24 04:36: Chlamy pneumoniae PCR Not detected, Adenovirus (PCR) Not detected, B. pertussis DNA (PCR) Not detected, Coronavirus OC43 (PCR) Not detected, Coronavirus HKU1 (PCR) Not detected, Coronavirus 229E (PCR) Not detected, SARS-CoV-2 (PCR) Not detected, Coronavirus NL63 (PCR) Not detected, Human Metapneumovir PCR Not detected, Influenza A (H1) PCR Not detected, Influ A (H1N1/09) PCR Not detected, Influenza A (H3) PCR Not detected, Influenza Type A (PCR) Not detected, Influenza Type B (PCR) Not detected, M. pneumoniae (PCR) Not detected, Parainfluenza 1 (PCR) Not detected, Parainfluenza 2 (PCR) Not detected, Parainfluenza 3 (PCR) Not detected, Parainfluenza 4 (PCR) Not detected, RSV (PCR) Not detected, Entero/Rhino (PCR) Not detected 09/13/24 05:57: WBC 7.9, RBC 4.46 L, Hgb 12.4 L, Hct 41.0 L, MCV 91.9, MCH 27.8, MCHC 30.2 L, RDW 13.8, Plt Count 185, MPV 10.4, Neut % (Auto) 92.4 H, Lymph % (Auto) 4.4 L, [place] % (Auto) 2.5, Eos % (Auto) 0.0 L, Baso % (Auto) 0.1, Neut # (Auto) 7.3, Lymph # (Auto) 0.4 L, [place] # (Auto) 0.2, Eos # (Auto) 0.0, Baso # (Auto) 0.0, Sodium 140, Potassium 4.7 D, Chloride 96 L, Carbon Dioxide 35 H, Anion Gap 13.7, BUN 17, Creatinine 0.70, Estimated Creat Clear 147, Estimated GFR 115, Est GFR ( Amer) 139, Glucose 178 H, Calcium 8.9 I & O for Labs for Last 24 Hours: Intake & Output 09/10/24 09/11/24 09/12/24 09/13/24 23:59 23:59 23:59 23:59 Intake Total 240 / 240 Output Total 0 / 0 0 / 0 Balance 0 / 240 240 / 240 Weight 215 lb 2.985 oz 203 lb 11.2 oz Constitutional: Present moderate distress Head: Present normocephalic and atraumatic ENT: Present normal exam, normal oropharynx and mucous membranes moist Neck: Present normal inspection and full ROM Respiratory: Present respiratory distress, wheezes and able to speak in complete sentences Cardiac: Present S1/S2, Tachycardia and radial pulses present GI: Present soft and distention; Absent tenderness or guarding Skin: Present intact; Absent cyanosis or jaundice Neuro: Present alert, awake and oriented x 3 Extremities: Present normal inspection; Absent clubbing or cyanosis Psychiatric: Present normal affect and cooperative Meds Home Medications and Allergies Home Medications ?Medication ?Instructions ?Recorded ?Confirmed ?Type inhalational spacing device #1 ea 11/21/23 08/09/24 History (Aerochamber Plus Flow-Vu) aspirin 81 mg tablet,delayed 81 mg PO DAILY 06/06/24 09/13/24 History release atorvastatin 20 mg tablet 20 mg PO DAILY 06/06/24 09/13/24 History furosemide 40 mg tablet 40 mg PO DAILYP PRN Edema 06/06/24 09/13/24 History lisinopril 10 mg tablet 10 mg PO DAILY 06/06/24 09/13/24 History metoprolol succinate 25 mg 25 mg PO DAILY 06/06/24 09/13/24 History tablet,extended release 24 hr albuterol sulfate 90 mcg/actuation 2 puff inhalation Q4-6H PRN 08/09/24 09/13/24 Rx aerosol inhaler shortness of breath or wheezing #8.5 grams dapagliflozin propanediol 10 mg 10 mg PO DAILY #90 tabs 08/19/24 09/13/24 Rx tablet (Farxiga) fluticasone fur. 100 mcg-umeclid 1 inh inhalation DAILY 09/13/24 09/13/24 History 62.5 mcg-vilant 25 mcg inhalat.powder (Trelegy Ellipta) New Prescriptions to Start Prescriptions: Allergies Allergy/AdvReac Type Severity Reaction Status Date / Time No Known Allergies Allergy Verified 08/09/24 10:38 Results Laboratory Findings 09/13/24 05:57 09/13/24 05:57 Abnormal lab findings: Abnormal Labs 09/12/24 09/12/24 09/13/24 14:37 14:54 05:57 RBC 4.46 L Hgb 13.1 L 12.4 L Hct 41.0 L MCHC 30.0 L 30.2 L Neut % (Auto) 92.4 H Lymph % (Auto) 7.2 L 4.4 L Eos % (Auto) 0.0 L Lymph # (Auto) 0.6 L 0.4 L Eos # (Auto) 0.8 H VBG pCO2 60.8 H VBG pO2 52.5 H VBG HCO3 35.2 H VBG Total CO2 37.0 H VBG O2 Saturation 87.5 H VBG Base Excess 10.0 H Chloride 96 L 96 L Carbon Dioxide 39 H 35 H Glucose 163 H 178 H Assessment and Plan *Assessment and plan (1) Acute exacerbation of chronic obstructive pulmonary disease: Status: Acute Category: Medical Code(s): J44.1 - Chronic obstructive pulmonary disease with (acute) exacerbation (2) Pneumonia: Status: Acute Category: Medical Code(s): J18.9 - Pneumonia, unspecified organism (3) ILD (interstitial lung disease): Status: Acute Category: Medical Code(s): J84.9 - Interstitial pulmonary disease, unspecified (4) Abnormal CT of the chest: Status: Acute Category: Medical Code(s): R93.89 - Abnormal findings on diagnostic imaging of other specified body structures (5) SOBOE (shortness of breath on exertion): Status: Acute Category: Medical Code(s): R06.02 - Shortness of breath (6) Pulmonary emphysema: Status: Acute Qualifiers: Emphysema type: other Qualified Code(s): J43.8 - Other emphysema Category: Medical Code(s): J43.9 - Emphysema, unspecified Plan Mr. Gilbert is a 59-year-old male greater than [id number] smoking history following in pulmonary clinic for exertional dyspnea and COPD multiple pulmonary nodules interstitial lung disease presented to the ER with worsening respiratory distress and pulmonary was called for further evaluation and management. Patient admits progressively worsening respiratory distress for the last 2 weeks with associated with bodyaches and generalized weakness but denies any worsening cough/productive phlegm. Denies any known sick contacts Patient upon admission failure needing increasing oxygen requirements. CTA upon admission no evidence of pulmonary embolism.. Left upper lobe lesion stable. The previously concerning right upper lobe spiculated nodular masslike opacity and mediastinal/hilar lymphadenopathy worsening from his most recent CT from June 2024. Continue to show upper lobe predominant emphysematous changes. Febrile. Hemodynamically stable. No evidence of leukocytosis complains of respiratory viral PCR panel negative. TB QuantiFERON negative. Auscultation moderate respiratory distress with diffuse wheezing noted. Plan: Continue oxygen supplementation to maintain O2 saturation goal of 90% and above. Currently on 3 L DuoNebs every 4 hours scheduled and Pulmicort every 12 scheduled Continue levofloxacin 750mg daily to complete a total of 7-day course Continue prednisone 40 mg daily to complete a total of 5 days Fungal infectious workup Follow-up blood sputum culture results Will schedule outpatient bronchoscopy with TB BX EBUS FNA
[2024-09-13] MEDS: SODIUM CHLORIDE 3% 15ML NEB 3 ML IH (09:59)
--- NOTE | 2024-09-13 10:01 | HMH.PHAINT1 ---
Pharmacy Intervention Comments: VERIFIED MEDICATIONS WITH PHARMACY, CONFIRMED WITH PATIENT.
[2024-09-13] MEDS: levoFLOXacin 750 MG TABLET PO (10:15)
[2024-09-13 11:37] LABS: Lymphocytes % 3 % (10-50); Monocytes % 1 % (2-9); Neutrophils % 96 % (42-76); Platelet Estimate Normal; RBC Morphology Normal; Total Cells Counted 100
--- NOTE | 2024-09-13 18:27 | PC.NURSE ---
pt resting supine in bed. a&ox4. tolerating 2lnc with sats >90%. nebs given per oct. no complaints of pain this shift. expiratory wheezing heard on auscultation. no needs at this time. call light within reach.
[2024-09-13] MEDS: BUDESONIDE 0.5MG/2ML NEB 0.5 MG IH (18:58)
[2024-09-13] MEDS: ATORVASTATIN 20MG TABLET 20 MG PO (20:52)
[2024-09-14] VITALS (7 sets, daily range): BP systolic 97–107; BP diastolic 60–63; PULSE 84–112; RESP 18–22; TEMP 36.4–36.6; O2SAT 91–95; BMI 28.6
[2024-09-14] MEDS: IPRATROPIUM/ALBUTEROL 3 ML NEB IH ×4 (02:04→14:13)
[2024-09-14] MEDS: BUDESONIDE 0.5MG/2ML NEB 0.5 MG IH (06:18)
[2024-09-14] MEDS: predniSONE 20MG TAB 40 MG PO (08:09)
[2024-09-14] MEDS: LISINOPRIL 10MG TABLET 10 MG PO (08:09)
[2024-09-14] MEDS: ASPIRIN 81MG CHEWABLE TABLET 81 MG PO (08:09)
[2024-09-14] MEDS: METOPROLOL TARTRATE 25MG TABLET 25 MG PO (08:09)
--- NOTE | 2024-09-14 08:17 | P.DS_ITS ---
General Admission date:: 09/12/24 HPI HPI HPI: This is a 59-year-old male with a past medical history of tobacco abuse, COPD, interstitial lung disease, hypertension, CAD who presents emergency department today with complaints of shortness of breath. He reports ongoing shortness of breath that is been persistently worse. States that 2 days ago he felt so ill that he could come to the hospital. States that he started to feel a little better today so he decided to seek treatment. Did see pulmonology in middle of July.. 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 Does report quitting smoking recently. Emergency Department workup notable for hypoxia requiring 2 L nasal cannula. Significant wheezing noted on exam. Mild CO2 retention with a pCO2 of 60 but compensated with a pH of 7.38. Will obtain respiratory pathogen panel. He has been treated with steroids and bronchodilators and will be admitted to the hospital service Hospital Course Hospital Course Hospital Course: Andrei Gilbert is a 59 year old male with a medical history significant for COPD who was admitted for acute hypoxic respiratory failure 2/2 COPD exacerbation. #Acute respiratory failure with hypoxia #COPD exacerbation #RUL spiculated lesion, hilar adenopathy - Initially requiring 3L, supposed to be on 2.5L at home but did not get O2 delivered yet. - CTA upon admission no evidence of pulmonary embolism. Left upper lobe lesion stable. The previously concerning right upper lobe spiculated nodular masslike opacity and mediastinal/hilar lymphadenopathy worsening from his most recent CT from June 2024. Continue to show upper lobe predominant emphysematous changes. - Clinically improved with Duoneb and Pulmicort breathing treatments, steroids, antibiotics. - Pulmonology consulted, planning outpatient bronchoscopy with TB BX EBUS FNA. - Discharged with prednisone and levofloxicin. Will follow-up with pulmonlogy within 1 week. - Home O2 set up for patient, will discharge with 2L (88% on room air at rest). #Hypertension Continue home antihypertensives #HLD Continue home statin Total time spent on discharge: 32 minutes on chart review, counseling, documentation, and direct care with patient. Exam Data for Last 24 hours Vital signs and Labs for Last 24 Hours: Temp Pulse Resp BP Pulse Ox O2 Del Method O2 Flow Rate 97.6 F 112 H 20 97/60 L 95 Nasal Cannula 2.5 09/14/24 03:42 09/14/24 06:19 09/14/24 03:42 09/14/24 03:42 09/14/24 06:19 09/14/24 07:00 09/14/24 07:00 Laboratory Results - last 24 hr 09/13/24 04:36: Chlamy pneumoniae PCR Not detected, Adenovirus (PCR) Not detected, B. pertussis DNA (PCR) Not detected, Coronavirus OC43 (PCR) Not detected, Coronavirus HKU1 (PCR) Not detected, Coronavirus 229E (PCR) Not detected, SARS-CoV-2 (PCR) Not detected, Coronavirus NL63 (PCR) Not detected, Human Metapneumovir PCR Not detected, Influenza A (H1) PCR Not detected, Influ A (H1N1/09) PCR Not detected, Influenza A (H3) PCR Not detected, Influenza Type A (PCR) Not detected, Influenza Type B (PCR) Not detected, M. pneumoniae (PCR) Not detected, Parainfluenza 1 (PCR) Not detected, Parainfluenza 2 (PCR) Not detected, Parainfluenza 3 (PCR) Not detected, Parainfluenza 4 (PCR) Not detected, RSV (PCR) Not detected, Entero/Rhino (PCR) Not detected 09/13/24 05:57: Total Counted 100, Neutrophils % (Manual) 96 H, Lymphocytes % (Manual) 3 L, Monocytes % (Manual) 1 L, Platelet Estimate Normal, RBC Morphology Normal I & O for Last 24 hours: Intake & Output 09/11/24 09/12/24 09/13/24 09/14/24 23:59 23:59 23:59 23:59 Intake Total 2400 / 2700 540 / 540 Output Total 0 / 0 0 / 0 Balance 0 / 240 2400 / 2700 540 / 540 Weight 97.607 kg 92.397 kg 90.889 kg Microbiology Reports for the Last 24 Hours: Microbiology 09/13/24 10:30 Sputum - Expectorated Sputum Gram Stain - Final Constitutional Constitutional: no acute distress *Routine HEENT Exam Head: Present normocephalic Eye: Present EOMI and PERRL ENT: Present mucous membranes moist *Routine Neck Exam Neck: Present supple; Absent lymphadenopathy *Routine Respiratory Exam Respiratory: Present CTA bilaterally *Routine Cardiovascular Exam Cardiovascular: Present RRR *Routine Abdominal Exam Abdominal: Present soft and normoactive bowel sounds; Absent tenderness *Routine Extremities Exam Extremities: Absent cyanosis, clubbing or edema *Routine Skin Exam Skin: Present warm; Absent rash *Routine Neurological Exam Neurological: Present alert and oriented X3 Results Data Completed and Pending Labs on day of discharge: Labs from last 24 hours 09/13/24 09/13/24 05:57 04:36 Total Counted 100 Neutrophils % (Manual) 96 H Lymphocytes % (Manual) 3 L Monocytes % (Manual) 1 L Platelet Estimate Normal RBC Morphology Normal Chlamy pneumoniae PCR Not detected Adenovirus (PCR) Not detected B. pertussis DNA (PCR) Not detected Coronavirus OC43 (PCR) Not detected Coronavirus HKU1 (PCR) Not detected Coronavirus 229E (PCR) Not detected SARS-CoV-2 (PCR) Not detected Coronavirus NL63 (PCR) Not detected Human Metapneumovir PCR Not detected Influenza A (H1) PCR Not detected Influ A (H1N1/09) PCR Not detected Influenza A (H3) PCR Not detected Influenza Type A (PCR) Not detected Influenza Type B (PCR) Not detected M. pneumoniae (PCR) Not detected Parainfluenza 1 (PCR) Not detected Parainfluenza 2 (PCR) Not detected Parainfluenza 3 (PCR) Not detected Parainfluenza 4 (PCR) Not detected RSV (PCR) Not detected Entero/Rhino (PCR) Not detected DS: Diagnosis Discharge Diagnosis (1) Acute exacerbation of chronic obstructive pulmonary disease: Status: Acute Code(s): J44.1 - Chronic obstructive pulmonary disease with (acute) exacerbation (2) Pneumonia: Status: Acute Code(s): J18.9 - Pneumonia, unspecified organism (3) ILD (interstitial lung disease): Status: Acute Code(s): J84.9 - Interstitial pulmonary disease, unspecified (4) Abnormal CT of the chest: Status: Acute Code(s): R93.89 - Abnormal findings on diagnostic imaging of other specified body structures (5) SOBOE (shortness of breath on exertion): Status: Acute Code(s): R06.02 - Shortness of breath (6) Pulmonary emphysema: Status: Acute Code(s): J43.9 - Emphysema, unspecified Qualifiers: Emphysema type: other Qualified Code(s): J43.8 - Other emphysema Meds Home Medications and Allergies Home Medications ?Medication ?Instructions ?Recorded ?Confirmed ?Type inhalational spacing device #1 ea 11/21/23 09/13/24 History (Aerochamber Plus Flow-Vu) aspirin 81 mg tablet,delayed 81 mg PO DAILY 06/06/24 09/13/24 History release atorvastatin 20 mg tablet 20 mg PO DAILY 06/06/24 09/13/24 History furosemide 40 mg tablet 40 mg PO DAILYP PRN Edema 06/06/24 09/13/24 History lisinopril 10 mg tablet 10 mg PO DAILY 06/06/24 09/13/24 History metoprolol succinate 25 mg 25 mg PO DAILY 06/06/24 09/13/24 History tablet,extended release 24 hr albuterol sulfate 90 mcg/actuation 2 puff inhalation Q4-6H PRN 08/09/24 09/13/24 Rx aerosol inhaler shortness of breath or wheezing #8.5 grams dapagliflozin propanediol 10 mg 10 mg PO DAILY #90 tabs 08/19/24 09/13/24 Rx tablet (Farxiga) fluticasone fur. 100 mcg-umeclid 1 inh inhalation DAILY 09/13/24 09/13/24 History 62.5 mcg-vilant 25 mcg inhalat.powder (Trelegy Ellipta) levofloxacin 750 mg tablet 750 mg PO 1100 4 days #4 tabs 09/14/24 Rx prednisone 20 mg tablet 40 mg (2 x 20 mg) PO DAILY 2 days 09/14/24 Rx #4 tabs New Prescriptions to Start Prescriptions: levofloxacin Rickey Suggs prednisone Rickey Suggs Allergies Allergy/AdvReac Type Severity Reaction Status Date / Time No Known Allergies Allergy Verified 08/09/24 10:38 Discharge Plan Disposition Patient Disposition: Home, Self-Care Condition: Fair Discharge Order Discharge Orders: Discharge Order (Routine); Ordered 09/14/24 Ordered By: Rickey Suggs Follow up Plan Follow up with: Yasmin Ingram MD [Physician] - Enter time for follow up Prescriptions/Medication Reconciliation: New prednisone 20 mg Tablet 40 mg PO DAILY 2 Days Qty: 4 0RF levofloxacin 750 mg Tablet 750 mg PO 1100 4 Days Qty: 4 0RF Continued (DME) Aerochamber Plus Flow-Vu Spacer See Rx Instructions .ROUTE .MEDSUPPLY Qty: 1 Rx Instructions: As directed furosemide 40 mg tablet 40 mg PO DAILYP PRN (Reason: Edema) lisinopril 10 mg tablet 10 mg PO DAILY Patient Comments: TAKE 1 TABLET BY MOUTH DAILY. metoprolol succinate 25 mg tablet extended release 24 hr 25 mg PO DAILY Patient Comments: TAKE 1 TABLET BY MOUTH DAILY. albuterol sulfate 90 mcg/actuation HFA aerosol inhaler 2 puff inhalation Q4-6H PRN (Reason: shortness of breath or wheezing) Qty: 8.5 1RF aspirin 81 mg tablet,delayed release (DR/EC) 81 mg PO DAILY atorvastatin 20 mg tablet 20 mg PO DAILY Patient Comments: TAKE 1 TABLET BY MOUTH DAILY. dapagliflozin propanediol [Farxiga] 10 mg tablet 10 mg PO DAILY Qty: 90 1RF Trelegy Ellipta 100-62.5-25 mcg blister with device 1 inh INHALATION DAILY Patient Comments: INHALE 1 PUFF INTO THE LUNGS ONCE DAILY. Problem Reconciliation Problems Reviewed?: Yes Patient Discharge Instructions Patient Instructions: DI for Chronic Obstructive Pulmonary Disease, DI for Pneumonia -- Adult Print Language: Kyrgyz Providers Primary Care Provider: Kandi Bernstein Admit Provider: Rickey Suggs Attending Provider: Rickey Suggs
[2024-09-14 10:13] LABS: Alanine Aminotransferase 16 U/L (12-78); Albumin Level 3.2 g/dl (3.5-5.0); Albumin/Globulin Ratio 1.2 (1.1-1.8); Alkaline Phosphatase 78 U/L (38-126); Anion Gap 6.1 mEq/L (5-15); Aspartate Amino Transferase 26 U/L (17-59); Blood Urea Nitrogen 23 mg/dl (9-20); Calcium 8.9 mg/dl (8.4-10.2); Carbon Dioxide 39 mmol/L (22.0-30.0); Chloride 98 mmol/L (98-107); Creatinine Clearance Estimated 126 mL/min (50-200); Estimated Glomerular Filt Rate 99 ml/min (>60); GFR (African American) 119 ML/MIN (>60); Globulin 2.7 g/dL (1.3-3.2); Glucose 148 mg/dl (74-100); Potassium 4.1 mmoL/L (3.5-5.1); Sodium 139 mmol/L (136-145); Total Protein,Serum 5.9 g/dl (6.3-8.2)
[2024-09-14 10:15] LABS: Bilirubin,Total 0.1 mg/dl (0.2-1.3)
[2024-09-14 10:25] LABS: Basophils % 0.2 % (0.1-2.0); Eosinophils # 0.2 K/mm3 (0.0-0.4); Eosinophils % 1.2 % (0.1-12.0); Hematocrit 38.9 % (42.0-52.0); Hemoglobin 11.6 g/dL (14.1-18.0); Lymphocytes # 0.6 K/mm3 (0.7-4.5); Mean Corpuscular HGB Conc 29.8 g/dL (31.8-35.4); Mean Corpuscular Hemoglobin 27.4 pg (27.0-31.2); Mean Platelet Volume 9.6 fl (7.4-10.4); Monocytes # 0.7 K/mm3 (0.1-1.0); Monocytes % 5.3 % (1.7-9.3); Neutrophils # 11.3 K/mm3 (1.8-7.8); Neutrophils % 87.7 % (37.0-80.0); Platelet Count 184 K/mm3 (142-424); Red Blood Count 4.23 M/mm3 (4.60-6.20); Red Cell Distribution Width 14.6 % (11.5-17.5); White Blood Count 12.8 K/mm3 (4.8-10.8)
[2024-09-14] MEDS: levoFLOXacin 750 MG TABLET PO (10:32)
--- NOTE | 2024-09-14 14:24 | PC.NURSE ---
PATIENT ROOM AIR IS 86% AT REST.
--- NOTE | 2024-09-16 11:14 | SW/DCPLANNER ---
Spoke with patient on the phone. Patient stated that he is doing okay. Patient stated that he hasnt gotten a phone call from DR Ingram office yet and i suggested that if they havent called him by Monday to give them a call. Patient stated that he has no concerns or questions at this time. Sen Stock
[2024-09-17 15:34] LABS: Clinical Relevance Notes (.); Disclaimer Notes (.); Fungitell Value 38.882 pg/mL (.); Interpretation Notes (.); Result Negative (.)
[2024-09-17 18:08] LABS: Aspergillus flavus Negative (Neg:<1:1); Aspergillus fumigatus Negative (Neg:<1:1); Aspergillus niger Negative (Neg:<1:1); Blastomyces Antibody Negative (Neg:<1:1); Histoplasma Antibody Quant Negative (Neg:<1:1)
== END 2024-09-14 17:43 | disposition home or self-care (01) | DRG 197 ==
LOC: ER 16:07 → 2ND 17:59
PROVIDERS: Internal Medicine Pulmonary Disease; Nurse Practitioner Acute Care; Student in an Organized Health Care Education/Training Program; Admitting Provider Student in an Organized Health Care Education/Training Program; Emergency Provider Emergency Medicine; PCP Nurse Practitioner; Visit Provider Student in an Organized Health Care Education/Training Program
DX: J84.9 Interstitial pulmonary disease, unspecified (principal); J44.1 Chronic obstructive pulmonary disease with (acute) exacerbation; E78.5 Hyperlipidemia, unspecified; I10 Essential (primary) hypertension; F17.211 Nicotine dependence, cigarettes, in remission; Z79.899 Other long term (current) drug therapy; Z79.82 Long term (current) use of aspirin; Z79.51 Long term (current) use of inhaled steroids; Z79.84 Long term (current) use of oral hypoglycemic drugs; Z99.81 Dependence on supplemental oxygen
CPT/HCPCS: 36415; 71046; 71275; 80048; 80053; 82803; 85007; 85025; 85027; 86606; 86612; 86698; 86803; 87070; 87205; 87389; 87449; 87633; 93005; 94640; 94761; 99285; G0378; J2919; J7620; Q9967

== ENCOUNTER 2024-09-23 14:26 | Outpatient (CLI) | payer MEDICAID, SELFPAY ==
[2024-09-23 15:40] VITALS: PULSE 86; PULSE 90
[2024-09-23] MEDS: ALBUTEROL 0.083% 2.5 MG/3 ML NEB IH (15:40)
== END 2024-09-23 23:59 | disposition home or self-care (01) ==
LOC: RT 14:26
PROVIDERS: PCP Nurse Practitioner; Visit Provider Internal Medicine Pulmonary Disease
DX: R06.09 Other forms of dyspnea (principal)
CPT/HCPCS: 94060; 94618; 94640; 94726; 94729; J7613

== ENCOUNTER 2024-10-30 09:48 | Outpatient (CLI) | payer MEDICAID, SELFPAY ==
[2024-10-30 10:18] VITALS: BMI 28.7
[2024-10-30 10:30] LABS: Basophils # 0.1 K/mm3 (0-0.2); Basophils % 0.9 % (0.1-2.0); Eosinophils % 11.7 % (0.1-12.0); Hematocrit 42.1 % (42.0-52.0); Lymphocytes # 0.8 K/mm3 (0.7-4.5); Lymphocytes % 10.2 % (10-50); Mean Corpuscular HGB Conc 30.9 g/dL (31.8-35.4); Mean Corpuscular Hemoglobin 27.6 pg (27.0-31.2); Mean Corpuscular Volume 89.4 fl (80-94); Mean Platelet Volume 9.8 fl (7.4-10.4); Monocytes # 0.9 K/mm3 (0.1-1.0); Monocytes % 10.4 % (1.7-9.3); Neutrophils # 5.4 K/mm3 (1.8-7.8); Neutrophils % 66.2 % (37.0-80.0); Platelet Count 222 K/mm3 (142-424); Red Blood Count 4.71 M/mm3 (4.60-6.20); Red Cell Distribution Width 14.5 % (11.5-17.5); White Blood Count 8.1 K/mm3 (4.8-10.8)
--- NOTE | 2024-10-30 10:31 | PC.NURSE ---
Spoke w/ cardiology clinic, per Lilo Tobar ok for pt to hold ASA prior to procedure if deemed necessary per Dr Ingram. Spoke w/ Sachi in Dr. Ingram's office who states he wishes for ASA to be held. Pt notified and verbalizes unserstanding.
[2024-10-30 10:40] LABS: Blood Urea Nitrogen 12 mg/dl (9-20); Calcium 9.4 mg/dl (8.4-10.2); Carbon Dioxide 38 mmol/L (22.0-30.0); Chloride 100 mmol/L (98-107); Creatinine Clearance Estimated 144 mL/min (50-200); Estimated Glomerular Filt Rate 115 ml/min (>60); GFR (African American) 139 ML/MIN (>60); Glucose 101 mg/dl (74-100); Sodium 141 mmol/L (136-145)
== END 2024-10-30 23:59 | disposition home or self-care (01) ==
LOC: PREOP 09:49
PROVIDERS: Nurse Anesthetist, Certified Registered; PCP Nurse Practitioner; Visit Provider Internal Medicine Pulmonary Disease
DX: Z01.812 Encounter for preprocedural laboratory examination (principal)
CPT/HCPCS: 80048; 85025

== ENCOUNTER 2024-11-04 15:07 | Observation (INO) | payer MEDICAID, SELFPAY ==
--- NOTE | 2024-10-29 09:55 | PC.NURSE ---
Appt scheduled for cardiac clearance tomorrow (10/30) @9am. Pt notified and verbalized understanding. Pt will attend clearance appt and come for PAT immediately thereafter.
[2024-10-30 10:34] VITALS: BMI 28.7
[2024-11-04] VITALS (29 sets, daily range): BP systolic 93–150; BP diastolic 63–106; PULSE 75–100; RESP 13–23; TEMP 35.7–37.1; O2SAT 87–98; BMI 32.1
[2024-11-04 10:55] LABS: POC Glucose,Bedside 92 (70-110)
[2024-11-04] MEDS: LACTATED RINGERS 1000ML 1,000 ML 25 ML IV (10:57)
--- NOTE | 2024-11-04 11:04 | P.PNANES_ITS ---
[facility] Disclaimer: The information contained in this section may have been updated after the patient was seen, as this information can be updated by other users. Medical History Encounter for pre-operative cardiovascular clearance Pneumonia Pleural thickening Multiple lung nodules on CT Pulmonary emphysema Paraseptal emphysema History of incarceration Abnormal CT of the chest Lung nodule SOBOE (shortness of breath on exertion) Dependence on nocturnal oxygen therapy ILD (interstitial lung disease) Abnormal echocardiogram Hypertension COPD (chronic obstructive pulmonary disease) Prediabetes Surgical History No history of previous surgery Family History Grandmother Cancer Grandfather Cancer Father Heart attack Social History (Updated 11/04/24 @ 10:44 by Zeina Stubbs RN) Smoking Status: Former smoker alcohol intake: former substance use type: denies use current occupational status: unemployed Travel in the last 8 weeks: None [facility] Anesthesia Checklist Patient Identification Patient Identification: Arm Band Structural Data Admitted From: Home Planned Operative Procedure/s: Bronchoscopy with Biopsy + EBUS Consent for Planned Operative Procedure(s) Verified: Yes Verified Documents: Surgical Consent and History and Physical NPO Status Verified Time NPO: 00:00 Additional verifications Anesthesia Reactions: No Hx Blood Transfusions: No Blood Transfusion Reaction: No Airway Assessment Mallampati Score:: Class II C-Spine Mobility Assessed: Yes TMJ Mobility Assessed: Yes Dentition: Poor Dentition (Upper dentures removed) Neurological Assessment Level of Consciousness: Awake, Alert and Appropriate Anesthesia Plan Anesthesia Risk discussed: Yes Anesthesia Plan: Verified ASA Class: III Anesthesia Type: General
--- NOTE | 2024-11-04 11:44 | P.CONS_ITS ---
History of Present Illness History of present illness: Mr. 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 Patient denies any new respiratory complaints. Continued to have cough and productive phlegm PFSH PFS Disclaimer: The information contained in this section may have been updated after the patient was seen, as this information can be updated by other users. Medical History (Updated 11/04/24 @ 11:46 by Yasmin Ingram MD) Mediastinal lymphadenopathy Encounter for pre-operative cardiovascular clearance Pneumonia Pleural thickening Multiple lung nodules on CT Pulmonary emphysema Paraseptal emphysema History of incarceration Abnormal CT of the chest Lung nodule SOBOE (shortness of breath on exertion) Dependence on nocturnal oxygen therapy ILD (interstitial lung disease) Abnormal echocardiogram Hypertension COPD (chronic obstructive pulmonary disease) Prediabetes Surgical History No history of previous surgery Family History Grandmother Cancer Grandfather Cancer Father Heart attack Social History (Updated 11/04/24 @ 11:05 by Jonn Sierra CRNA) Smoking Status: Former smoker alcohol intake: former substance use type: denies use current occupational status: unemployed Travel in the last 8 weeks: None Have you lived/traveled outside [place] in past 30 days?: No Contact w/someone who lives/traveled outside US past 30 days?: No Exposure to someone with infectious disease in past 14 days?: No Do you have a fever (greater than 100.4 F or 38 C)?: No Have you tested positive for COVID-19: No Exposed to someone with COVID-19 in past 14 days?: No Do you have a sore throat?: No Do you have a cough?: No Do you have any weakness?: No Are you experiencing any nausea/vomitting?: No Do you have any diarrhea?: No Are you experiencing any unusual bleeding?: No Do you have any muscle aches/pain?: No Do you have any abdominal pain?: No Are you experiencing loss of taste or smell?: No Review of Systems Constitutional Constitutional: Reports anorexia, Reports body ache(s), Reports fatigue and Reports weakness Eyes Eyes: Denies eye discharge, Denies dry eyes, Denies irritation and Denies itchy eyes ENT Ears, Nose, Mouth, and Throat: Denies epistaxis, Denies facial pain, Denies lip swelling and Denies throat swelling *Cardiovascular Cardiovascular: Reports dyspnea and Reports dyspnea on exertion *Respiratory Respiratory: Denies change in phlegm color, Reports chest congestion, Reports cough, Reports dyspnea, Reports dyspnea on exertion, Denies excessive phlegm production and Denies wheezing *Gastrointestinal Gastrointestinal: Denies abdominal pain, Denies belching and Denies cramping *Musculoskeletal Musculoskeletal: Reports back pain, Reports myalgias and Reports other (No small joint swelling or Pain) *Neurologic Neurologic: Reports weakness Psychiatric Psychiatric: Denies homicidal ideation and Denies suicidal ideation Endocrine Endocrine: Reports fatigue and Denies heat intolerance Hematologic/Lymphatic Hematologic/Lymphatic: Denies easy bleeding and Denies lymphadenopathy Allergic/Immunologic Allergic/Immunologic: Denies itchy eyes, Denies lip swelling, Denies throat swelling and Denies wheezing Pulmonology Exam Inpatient Vital signs and Labs for Last 24 Hours: Temp Pulse Resp BP Pulse Ox O2 Del Method O2 Flow Rate 97.6 F 81 20 126/86 97 Nasal Cannula 2.5 11/04/24 10:42 11/04/24 10:42 11/04/24 10:42 11/04/24 10:42 11/04/24 10:42 11/04/24 10:42 11/04/24 10:42 Laboratory Results - last 24 hr 11/04/24 10:47: POC Glucose 92 I & O for Labs for Last 24 Hours: Intake & Output 09/10/24 09/11/24 09/12/24 09/13/24 23:59 23:59 23:59 23:59 Intake Total 240 / 240 Output Total 0 / 0 0 / 0 Balance 0 / 240 240 / 240 Weight 215 lb 2.985 oz 203 lb 11.2 oz Constitutional: Present mild distress Head: Present normocephalic and atraumatic ENT: Present normal exam, normal oropharynx and mucous membranes moist Neck: Present normal inspection and full ROM Respiratory: Present normal respiratory effort and able to speak in complete sentences; Absent respiratory distress, rhonchi, wheezes or crackles Cardiac: Present S1/S2, Tachycardia and radial pulses present GI: Present soft and distention; Absent tenderness or guarding Skin: Present intact; Absent cyanosis or jaundice Neuro: Present alert, awake and oriented x 3 Extremities: Present normal inspection; Absent clubbing or cyanosis Psychiatric: Present normal affect and cooperative Meds Home Medications and Allergies Home Medications ?Medication ?Instructions ?Recorded ?Confirmed ?Type inhalational spacing device #1 ea 11/21/23 10/30/24 History (Aerochamber Plus Flow-Vu) aspirin 81 mg tablet,delayed 81 mg PO DAILY 06/06/24 11/04/24 History release atorvastatin 20 mg tablet 20 mg PO DAILY 06/06/24 10/30/24 History furosemide 40 mg tablet 40 mg PO DAILYP PRN Edema 06/06/24 10/30/24 History lisinopril 10 mg tablet 10 mg PO DAILY 06/06/24 10/30/24 History metoprolol succinate 25 mg 25 mg PO DAILY 06/06/24 11/04/24 History tablet,extended release 24 hr albuterol sulfate 90 mcg/actuation 2 puff inhalation Q4-6H PRN 08/09/24 11/04/24 Rx aerosol inhaler shortness of breath or wheezing #8.5 grams dapagliflozin propanediol 10 mg 10 mg PO DAILY #90 tabs 08/19/24 10/30/24 Rx tablet (Farxiga) fluticasone fur. 100 mcg-umeclid 1 inh inhalation DAILY 09/13/24 11/04/24 History 62.5 mcg-vilant 25 mcg inhalat.powder (Trelegy Ellipta) New Prescriptions to Start Prescriptions: Allergies Allergy/AdvReac Type Severity Reaction Status Date / Time No Known Allergies Allergy Verified 11/04/24 10:38 Assessment and Plan *Assessment and plan (1) Pleural thickening: Status: Acute Category: Medical Code(s): J92.9 - Pleural plaque without asbestos (2) Lung nodule: Status: Acute Category: Medical Code(s): R91.1 - Solitary pulmonary nodule (3) Mediastinal lymphadenopathy: Status: Acute Category: Medical Code(s): R59.0 - Localized enlarged lymph nodes Plan #Abnormal CT scan: # Multiple pulmonary nodules: # Pleural thickening: #ILD CT chest May 2024 for multiple abnormalities: Left upper lobe pleural thickening and adjacent likely scarring. Right upper lobe pulmonary nodules one of them is calcified along with bilateral lower lobe possible interstitial changes. Mediastinal and hilar lymphadenopathy noted. CT chest August 2024: ?Left upper lobe lesion stable. The previously concerning right upper lobe spiculated nodular masslike opacity and mediastinal/hilar lymphadenopathy worsening? Infectious workup: TB QuantiFERON negative. Serum fungal serologies including histoplasma serology negative. Sputum cultures from May 2024 showing Carlota tropicalis. No recent prior imaging available for review. Plan: Proceed with bronchoscopy with BAL transbronchial, endobronchial biopsy EBUS FNA as planned
--- NOTE | 2024-11-04 13:43 | XR_ITS ---
FINAL REPORT CLINICAL HISTORY: BRONCH IN OR 164.6 seconds 30.25 mGy FINDINGS: FLUOROSCOPY LESS THAN 1 HOUR HISTORY: Fluoroscopy guidance. FINDINGS: Fluoroscopic guidance was provided for bronchoscopy in the OR. A single spot film was obtained. A total of 164.6 seconds of fluoroscopy time were used. DAP: 30.25 mGy IMPRESSION: As above. Reviewed, Interpreted and Dictated by Phillip Castillo MD Transcribed by Tiffani Erickson Authenticated and [facility]
--- NOTE | 2024-11-04 14:22 | XR_ITS ---
FINAL REPORT CLINICAL HISTORY: post bronch COMPARISON: 09/12/2024 FINDINGS: A single portable view of the chest was obtained. The exam is lordotic and underinflated. The heart size and pulmonary vascularity are within normal limits. The mediastinum is within normal limits. There are dense bilateral infiltrates present, accentuated by the underinflation. No pneumothorax is identified. The bony thorax is intact. IMPRESSION: Bilateral infiltrates are present, likely accentuated by underinflation. Reviewed, Interpreted and Dictated by Phillip Castillo MD Transcribed by Arlene Burr Authenticated and [facility]
--- NOTE | 2024-11-04 14:24 | P.PNANES_ITS ---
[facility] Anesthesia Record Part I Anesthesia Record I Intake, IV Amount: 1,500 Hydration: Adequate Estimated blood loss (mL): 0 Urine output (mL): 0 Blood Products used (#): none Blood Pressure: 136/98 SaO2: 98 Pulse Rate: 75 Airway Patency: Patent Respiratory Rate: 16 Temperature: 97.9 F Patient is:: Drowsy and Stable
[2024-11-04 14:48] LABS: ABG Base Excess 0.6 mmol/L (-2.4-2.3); ABG Oxygen Saturation 99 % (90-100); ABG PO2 203.1 mmhg (80-100)
[2024-11-04] MEDS: ALBUTEROL 0.083% 2.5 MG/3 ML NEB 5 MG IH ×2 (15:05)
--- NOTE | 2024-11-04 15:19 | HMH.PHAINT1 ---
Pharmacy Intervention Comments: MEDICATION RECONCILIATION COMPLETED ON PATIENT USING EXTERNAL FILL HISTORY FROM PHARMACY. -LUIS LESLIE, JANEEND
[2024-11-04 15:44] LABS: ABG PH 7.11 mmol/L (7.35-7.45); Allen's Test acceptable; Oxygen 100 %; Source Left Radial
--- NOTE | 2024-11-04 16:00 | EXP.HP ---
History of Present Illness *Admission Date: 11/04/24 *Reason for visit:: Hypercapnic. Somnolent after procedure *History of present illness: Mr. Gilbert is a 59-year-old male with history of tobacco use disorder, asthma greater than 30 pack years, has had previous imaging showing mediastinal lymphadenopathy and pleural thickening along with multiple lung nodules. History of emphysema/COPD, hypertension. Presented for elective bronchoscopy with EBUS and FNA as an outpatient. Procedure performed for exertional dyspnea. Tolerated procedure well however after procedure had worsening mentation and was not waking from anesthesia. Found to be hypercapnic with respiratory failure. Was placed on BiPAP. Medicine consulted for admission and further assistance with management. Patient admitted to the ICU on BiPAP. Initial blood gas with pH of 7.11, pCO2 of 96 on ABG. Patient is afebrile. Was at baseline level of function prior to procedure. On my evaluation after arrival to the ICU, patient is tolerating BiPAP. He is interactive on exam and asking questions. Gave me a fist bump on introduction. Answering questions appropriately. Asking for something to drink as his mouth is dry. Denies any chest pain, nausea, vomiting. Afebrile and hemodynamically stable. [facility] Disclaimer: The information contained in this section may have been updated after the patient was seen, as this information can be updated by other users. Medical History Acute hypercapnic respiratory failure Mediastinal lymphadenopathy Encounter for pre-operative cardiovascular clearance Pneumonia Pleural thickening Multiple lung nodules on CT Pulmonary emphysema Paraseptal emphysema History of incarceration Abnormal CT of the chest Lung nodule SOBOE (shortness of breath on exertion) Dependence on nocturnal oxygen therapy ILD (interstitial lung disease) Abnormal echocardiogram Hypertension COPD (chronic obstructive pulmonary disease) Prediabetes Surgical History No history of previous surgery Family History Grandmother Cancer Grandfather Cancer Father Heart attack Social History Smoking Status: Former smoker alcohol intake: former substance use type: denies use current occupational status: unemployed Travel in the last 8 weeks: None Other Medical History Have you received the Flu Vaccine for this season: No Have you received the Pneumonia Vaccine: Yes Review of Systems Review of Systems Review of systems (narrative): 14 point review of systems performed, pertinent positives and negatives as per HPI Constitutional Constitutional: Reports weakness *Neurologic Neurologic: Reports weakness Meds Home Medications and Allergies Home Medications ?Medication ?Instructions ?Recorded ?Confirmed ?Type inhalational spacing device #1 ea 11/21/23 10/30/24 History (Aerochamber Plus Flow-Vu) aspirin 81 mg tablet,delayed 81 mg PO DAILY 06/06/24 11/04/24 History release atorvastatin 20 mg tablet 20 mg PO DAILY 06/06/24 10/30/24 History lisinopril 10 mg tablet 10 mg PO DAILY 06/06/24 10/30/24 History metoprolol succinate 25 mg 25 mg PO DAILY 06/06/24 11/04/24 History tablet,extended release 24 hr dapagliflozin propanediol 10 mg 10 mg PO DAILY #90 tabs 08/19/24 10/30/24 Rx tablet (Farxiga) fluticasone fur. 100 mcg-umeclid 1 inh inhalation DAILY 09/13/24 11/04/24 History 62.5 mcg-vilant 25 mcg inhalat.powder (Trelegy Ellipta) albuterol sulfate 90 mcg/actuation 2 puff inhalation Q4HP PRN 11/04/24 11/04/24 History aerosol inhaler shortness of breath or wheezing New Prescriptions to Start Prescriptions: Allergies Allergy/AdvReac Type Severity Reaction Status Date / Time No Known Allergies Allergy Verified 11/04/24 10:38 Exam Data for Last 24 hours Vital signs and Labs for Last 24 Hours: Temp Pulse Resp BP Pulse Ox O2 Del Method O2 Flow Rate 98.8 F 85 18 114/76 97 BiPAP 6 11/04/24 14:55 11/04/24 15:15 11/04/24 15:15 11/04/24 15:15 11/04/24 15:15 11/04/24 15:15 11/04/24 14:55 FiO2 30 11/04/24 15:48 Laboratory Results - last 24 hr 11/04/24 10:47: POC Glucose 92 11/04/24 14:38: Specimen Source Left radial, O2 % 100, ABG pH 7.11 L*, ABG pCO2 96.0 H, ABG pO2 203.1 H, ABG HCO3 30.0 H, ABG Total CO2 33.0 H, ABG O2 Saturation 99, ABG Base Excess 0.6, Juan Test acceptable I & O for Last 24 hours: Intake & Output 11/01/24 11/02/24 11/04/24 11/04/24 23:59 23:59 00:59 23:59 Intake Total 1500 / 1500 Balance 1500 / 1500 Weight 101.69 kg Constitutional Constitutional: mild distress, obese, chronically ill appearing and cooperative *Routine HEENT Exam Head: Present normocephalic Eye: Present EOMI and PERRL ENT: Present mucous membranes moist *Routine Neck Exam Neck: Present supple; Absent lymphadenopathy *Routine Respiratory Exam Respiratory: Present wheezes, crackles, distant breath sounds and diminished air movement; Absent respiratory distress *Routine Cardiovascular Exam Cardiovascular: Present RRR *Routine Abdominal Exam Abdominal: Present soft and normoactive bowel sounds; Absent tenderness *Routine Rectal Exam Rectal:: deferred *Routine Genitalia Exam Genitalia:: deferred *Routine Extremities Exam Extremities: Absent cyanosis, clubbing or edema *Routine Skin Exam Skin: Present warm; Absent rash *Routine Neurological Exam Neurological: Present alert and moving all extremities; Absent altered mental status Comments: Knows who he is and where he is, does not know why he is here or why he is on BiPAP. Does appear to be improving in mentation compared to when BiPAP was placed. Asking questions and responding to questions appropriately Assessment and Plan *Assessment and plan (1) Acute hypercapnic respiratory failure: Status: Acute Category: Medical Code(s): J96.02 - Acute respiratory failure with hypercapnia (2) Mediastinal lymphadenopathy: Status: Acute Category: Medical Code(s): R59.0 - Localized enlarged lymph nodes (3) Pleural thickening: Status: Acute Category: Medical Code(s): J92.9 - Pleural plaque without asbestos (4) Multiple lung nodules on CT: Status: Acute Category: Medical Code(s): R91.8 - Other nonspecific abnormal finding of lung field (5) Pulmonary emphysema: Status: Acute Qualifiers: Emphysema type: other Qualified Code(s): J43.8 - Other emphysema Category: Medical Code(s): J43.9 - Emphysema, unspecified (6) ILD (interstitial lung disease): Status: Acute Category: Medical Code(s): J84.9 - Interstitial pulmonary disease, unspecified (7) Hypertension: Status: Acute Qualifiers: Hypertension type: primary hypertension Qualified Code(s): I10 - Essential (primary) hypertension Category: Medical Code(s): I10 - Essential (primary) hypertension (8) COPD (chronic obstructive pulmonary disease): Status: Acute Qualifiers: COPD type: COPD with acute exacerbation Qualified Code(s): J44.1 - Chronic obstructive pulmonary disease with (acute) exacerbation Category: Medical Code(s): J44.9 - Chronic obstructive pulmonary disease, unspecified (9) Prediabetes: Status: Acute Category: Medical Code(s): R73.03 - Prediabetes (10) Dependence on nocturnal oxygen therapy: Status: Acute Category: Medical Code(s): Z99.81 - Dependence on supplemental oxygen Plan 59-year-old male who presented for elective bronchoscopy. After the procedure developed hypercarbic respiratory failure needing BiPAP. Medicine consulted for admission. Discussed case with pulmonology, request admission on BiPAP to monitor for improvement in respiratory acidosis. I agreed to admit to the ICU for further care. Showing some improvement by the time of my evaluation. Problems addressed as follows: Acute hypercarbic respiratory failure Emphysema Pleural thickening/mediastinal lymphadenopathy -Postprocedural chest x-ray shows continued bilateral edema/airspace disease slightly worse than before bronchoscopy per my review. No pneumothorax present. -Initial ABG with pH 7.11, pCO2 96. Placed on BiPAP. Repeat ABG improved to 7.33, pCO2 of 52. Pulmonology consulted and managing BiPAP. -Ordered CBC, CMP, magnesium, CRP and ESR. Repeat labs also ordered for the morning including CBC, CMP, magnesium. -Goal sats greater 90%. Will wean oxygen as necessary. -Initiate methylprednisolone 60 mg IV daily -DuoNebs every 4 hours, Pulmicort twice daily -Hold on a biotics at this time per pulmonology recommendations. BAL results pending -Continue Trelegy 100 inhaler Continue dapagliflozin 10 mg daily for prediabetes Continue lisinopril 10 mg daily and metoprolol succinate 25 mg daily for hypertension Aspirin 81 mg daily for CAD Lipitor 20 mg daily for hyperlipidemia Full code Lovenox 40 mg subcu daily N.p.o. pending improvement in blood gas. Will consider advancing diet if takes break from BiPAP later
--- NOTE | 2024-11-04 16:34 | EXP.PULM.CON ---
History of Present Illness History of present illness: Mr. 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 [facility] Disclaimer: The information contained in this section may have been updated after the patient was seen, as this information can be updated by other users. Medical History (Updated 11/04/24 @ 16:34 by Yasmin Ingram MD) Acute hypercapnic respiratory failure Mediastinal lymphadenopathy Encounter for pre-operative cardiovascular clearance Pneumonia Pleural thickening Multiple lung nodules on CT Pulmonary emphysema Paraseptal emphysema History of incarceration Abnormal CT of the chest Lung nodule SOBOE (shortness of breath on exertion) Dependence on nocturnal oxygen therapy ILD (interstitial lung disease) Abnormal echocardiogram Hypertension COPD (chronic obstructive pulmonary disease) Prediabetes Surgical History No history of previous surgery Family History Grandmother Cancer Grandfather Cancer Father Heart attack Social History (Updated 11/04/24 @ 11:05 by Jonn Sierra CRNA) Smoking Status: Former smoker alcohol intake: former substance use type: denies use current occupational status: unemployed Travel in the last 8 weeks: None Review of Systems Review of Systems Review of systems:: unable to obtain Review of systems (narrative): Patient altered Pulmonology Exam Inpatient Vital signs and Labs for Last 24 Hours: Temp Pulse Resp BP Pulse Ox O2 Del Method O2 Flow Rate 98.8 F 85 18 114/76 97 BiPAP 6 11/04/24 14:55 11/04/24 15:15 11/04/24 15:15 11/04/24 15:15 11/04/24 15:15 11/04/24 15:15 11/04/24 14:55 FiO2 30 11/04/24 15:48 Laboratory Results - last 24 hr 11/04/24 10:47: POC Glucose 92 11/04/24 14:38: Specimen Source Left radial, O2 % 100, ABG pH 7.11 L*, ABG pCO2 96.0 H, ABG pO2 203.1 H, ABG HCO3 30.0 H, ABG Total CO2 33.0 H, ABG O2 Saturation 99, ABG Base Excess 0.6, Juan Test acceptable I & O for Labs for Last 24 Hours: Intake & Output 11/01/24 11/02/24 11/04/24 11/04/24 23:59 23:59 00:59 23:59 Intake Total 1500 / 1500 Balance 1500 / 1500 Weight 224 lb 3 oz Constitutional: Present severe distress Head: Present normocephalic and atraumatic ENT: Present normal exam, normal oropharynx and mucous membranes moist Neck: Present normal inspection and full ROM Respiratory: Present respiratory distress, wheezes and diminished air movement; Absent able to speak in complete sentences Cardiac: Present S1/S2, Tachycardia and radial pulses present GI: Present soft and distention; Absent tenderness or guarding Skin: Present intact; Absent cyanosis or jaundice Neuro: Present awake; Absent alert or oriented x 3 Extremities: Present normal inspection; Absent clubbing or cyanosis Psychiatric: Present unable to assess Meds Home Medications and Allergies Home Medications ?Medication ?Instructions ?Recorded ?Confirmed ?Type inhalational spacing device #1 ea 11/21/23 10/30/24 History (Aerochamber Plus Flow-Vu) aspirin 81 mg tablet,delayed 81 mg PO DAILY 06/06/24 11/04/24 History release atorvastatin 20 mg tablet 20 mg PO DAILY 06/06/24 10/30/24 History lisinopril 10 mg tablet 10 mg PO DAILY 06/06/24 10/30/24 History metoprolol succinate 25 mg 25 mg PO DAILY 06/06/24 11/04/24 History tablet,extended release 24 hr dapagliflozin propanediol 10 mg 10 mg PO DAILY #90 tabs 08/19/24 10/30/24 Rx tablet (Farxiga) fluticasone fur. 100 mcg-umeclid 1 inh inhalation DAILY 09/13/24 11/04/24 History 62.5 mcg-vilant 25 mcg inhalat.powder (Trelegy Ellipta) albuterol sulfate 90 mcg/actuation 2 puff inhalation Q4HP PRN 11/04/24 11/04/24 History aerosol inhaler shortness of breath or wheezing New Prescriptions to Start Prescriptions: Allergies Allergy/AdvReac Type Severity Reaction Status Date / Time No Known Allergies Allergy Verified 11/04/24 10:38 Results Laboratory Findings ABG ABG pH 7.11 mmol/L (7.35-7.45) L* 11/04/24 14:38 ABG pCO2 96.0 mmhg (35.0-45.0) H 11/04/24 14:38 ABG pO2 203.1 mmhg (80-100) H 11/04/24 14:38 ABG O2 Saturation 99 % (90-100) 11/04/24 14:38 Abnormal lab findings: Abnormal Labs 11/04/24 14:38 ABG pH 7.11 L* ABG pCO2 96.0 H ABG pO2 203.1 H ABG HCO3 30.0 H ABG Total CO2 33.0 H Assessment and Plan *Assessment and plan (1) Acute hypercapnic respiratory failure: Status: Acute Category: Medical Code(s): J96.02 - Acute respiratory failure with hypercapnia Plan Mr. 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 Chest x-ray postprocedure, continue to bilateral bili slightly worsening status post bronchoscopy. No pneumothorax appreciated. Plan: Follow with repeat ABG Continue NIV, currently on BiPAP at 20/10 and a rate of 20 and FiO2 of 30%. DuoNebs every 4 hours along with Pulmicort every 12 scheduled Prednisone 40 mg daily Following bronchoscopy results No need for antibiotics at this point of time
--- NOTE | 2024-11-04 16:37 | EXP.BRONCH.N ---
Procedure: Date: 11/04/24 Patient Date of :: 1965 Procedure Performed:: Bronchoscopy, airway examination, bronchoalveolar lavage, transbronchial biopsy, endobronchial biopsy and endobronchial ultrasound-guided fine-needle aspiration of lymph node Indications:: Lung nodule and lymphadenopathy Performing Provider:: Yasmin Ingram MD Referring Provider:: Dr: Kandi Bernstein APRN Sedation:: General anesthesia Procedure:: Bronchoscopy, airway examination, bronchoalveolar lavage, transbronchial biopsy, endobronchial biopsy and endobronchial ultrasound-guided fine-needle aspiration of lymph node: A clean EBUS bronchoscopy was advanced the ET tube and lymph node surveillance was performed. Patient noted to have bulky lymphadenopathy at station 7 along with nonbulky enlarged lymphadenopathies at station 10R and 10L. Had total of 5 passes were done at each lymph node station and the resultant sample was sent in CytoLyt for cytopathologic examination. Lymph node sample was also sent in [place] medium for flow cytometry examination. EBUS bronchoscopy was retracted and A clean DIAGNOSTIC bronchoscopy was advanced through the ET tube and airways were examined up to subsegmental bronchi. Endobronchial lesion was noted in the left upper lobe apical segment bronchi occluding 20 to 30% of the lumen. Otherwise airways appeared grossly normal, no evidence of mucoid secretions, mucous plugging active bleeding/old blood clots noted. Bronchoalveolar lavage was performed in the RIGHT UPPER LOBE with instillation of 60 cc normal saline with return of 30 cc back. BAL fluid was sent for cell count and differential along with bacterial fungal and AFB stain and cultures. Transbronchial biopsy was performed in the RIGHT UPPER LOBE with a total of 7 biopsies performed, 5 biopsy specimens were sent in formalin for cytopathologic examination. The other 2 biopsy samples, were sent one each in two separate normal saline specimen cups for bacterial fungal and AFB stain cultures. Special request was also made for the pathologist to evaluate for AFB and fungal organisms on the cytopathologic examination. Endobronchial biopsies were also performed to the noted right upper lobe endobronchial lesion and were sent in formalin for cytopathologic examination. Patient tolerated the procedure with no immediate acute complications. We will follow the patient in pulmonary clinic in 7 to 10 days. Findings:: Please see the procedure note Recommendations:: Postoperative bronchoscopy instructions. Please see the procedure note. Complications:: Patient continued to have altered mentation after extubation and subsequent blood gas showing hypercarbic respiratory failure needing noninvasive ventilatory therapy. Estimated blood obtained (mL): 10
[2024-11-04 16:46] LABS: ABG HCO3 26.9 mmhg (22.0-26.0); ABG Oxygen Saturation 90 % (90-100); ABG PH 7.33 mmol/L (7.35-7.45); ABG PO2 60.4 mmhg (80-100); ABG TCO2 28.5 mmhg (23-27)
[2024-11-04 17:42] LABS: Basophils % 0.3 % (0.1-2.0); Eosinophils # 0.1 K/mm3 (0.0-0.4); Eosinophils % 0.7 % (0.1-12.0); Hematocrit 41.2 % (42.0-52.0); Hemoglobin 12.8 g/dL (14.1-18.0); Lymphocytes # 0.3 K/mm3 (0.7-4.5); Lymphocytes % 3.6 % (10-50); Mean Corpuscular HGB Conc 31.1 g/dL (31.8-35.4); Mean Corpuscular Hemoglobin 28.1 pg (27.0-31.2); Mean Corpuscular Volume 90.4 fl (80-94); Mean Platelet Volume 10.6 fl (7.4-10.4); Monocytes # 0.1 K/mm3 (0.1-1.0); Monocytes % 1.2 % (1.7-9.3); Neutrophils # 8.1 K/mm3 (1.8-7.8); Neutrophils % 93.7 % (37.0-80.0); Platelet Count 125 K/mm3 (142-424); Red Blood Count 4.56 M/mm3 (4.60-6.20); Red Cell Distribution Width 14.3 % (11.5-17.5); White Blood Count 8.7 K/mm3 (4.8-10.8)
[2024-11-04 17:47] LABS: Allen's Test Acceptable; Oxygen 30% %; Pressure Support 20/10; Source Left Radial; Vent Rate 20
[2024-11-04 17:48] LABS: Chloride 101 mmol/L (98-107)
[2024-11-04 17:49] LABS: Potassium 4.4 mmoL/L (3.5-5.1); Sodium 137 mmol/L (136-145)
[2024-11-04 17:50] LABS: MANUAL DIFFERENTIAL MANUAL DIFFERENTIAL (MANUAL DIFF)
[2024-11-04 17:51] LABS: Alanine Aminotransferase 24 U/L (12-78); Albumin/Globulin Ratio 1.3 (1.1-1.8); Anion Gap 7.4 mEq/L (5-15); Aspartate Amino Transferase 33 U/L (17-59); Blood Urea Nitrogen 14 mg/dl (9-20); Carbon Dioxide 33 mmol/L (22.0-30.0); Creatinine Clearance Estimated 161 mL/min (50-200); Estimated Glomerular Filt Rate 115 ml/min (>60); GFR (African American) 139 ML/MIN (>60); Globulin 3.2 g/dL (1.3-3.2); Total Protein,Serum 7.2 g/dl (6.3-8.2)
[2024-11-04 17:52] LABS: Alkaline Phosphatase 91 U/L (38-126); Bilirubin,Total 0.6 mg/dl (0.2-1.3); Calcium 8.8 mg/dl (8.4-10.2); Glucose 118 mg/dl (74-100); Magnesium 1.7 mg/dl (1.6-2.3)
[2024-11-04 17:57] LABS: C-Reactive Protein 7.5 mg/L (0-4)
[2024-11-04] MEDS: METHYLPREDNISOLONE SOD SUCC 125MG VIAL 60 MG IV (18:01)
[2024-11-04] MEDS: BUDESONIDE 0.5MG/2ML NEB 0.5 MG IH (18:16)
[2024-11-04] MEDS: IPRATROPIUM/ALBUTEROL 3 ML NEB IH ×2 (18:16→21:25)
--- NOTE | 2024-11-04 18:25 | PC.NURSE ---
1700 Dr schofield called and gave telephone orders to keep pt on bipap until 1900. if pt is awake and alert and oriented and able to eat, he may eat and stay off of bipap throughout the night.
[2024-11-04 19:35] LABS: Lymphocytes % 36 % (10-50); Monocytes % 3 % (2-9); Neutrophils % 61 % (42-76); Platelet Estimate Normal; RBC Morphology Normal; Total Cells Counted 100
[2024-11-04 23:14] LABS: Erythrocyte Sedimentation Rate 18 mm/hr (0-20)
[2024-11-05] VITALS (18 sets, daily range): BP systolic 95–124; BP diastolic 41–76; PULSE 80–110; RESP 6–22; TEMP 36.3–36.8; O2SAT 90–98; BMI 31.4
[2024-11-05 01:06] LABS: Adenovirus,PCR Not Detected (NotDetected); Bordetella Pertussis Not Detected (NotDetected); Chlamydophila Pneumoniae, PCR Not Detected (NotDetected); Coronavirus 19, PCR Not Detected (NotDetected); Coronavirus 229E Not Detected (NotDetected); Coronavirus NL63 Not Detected (NotDetected); Coronavirus OC43 Not Detected (NotDetected); Coronovirus HKU1,PCR Not Detected (NotDetected); Human Metapneumovirus Not Detected (NotDetected); Influenza A, PCR Not Detected (NotDetected); Influenza AH1, 2009 Not Detected (NotDetected); Influenza AH1, PCR Not Detected (NotDetected); Influenza AH3,PCR Not Detected (NotDetected); Influenza B, PCR Not Detected (NotDetected); Mycoplasma Pneumoniae, PCR Not Detected (NotDetected); Parainfluenza 1, PCR Not Detected (NotDetected); Parainfluenza 2, PCR Not Detected (NotDetected); Parainfluenza 3, PCR Not Detected (NotDetected); Parainfluenza 4, PCR Not Detected (NotDetected); Respiratory Syncytial Virus Not Detected (NotDetected); Rhinovirus/Enterovirus Not Detected (NotDetected)
[2024-11-05] MEDS: IPRATROPIUM/ALBUTEROL 3 ML NEB IH ×3 (02:16→09:35)
--- NOTE | 2024-11-05 03:21 | EXP.EVENT.NO ---
plan patient is really not getting out of bed. So have ordered physical therapy to evaluate and send a communication notes to nurses that we need to be getting him up every 2 hours during the daytime.. Also will order a compression vest. Hoping to see results and if we get the patient up and moving we can move some of this fluid which has accumulated especially in the left lung.. Hoping to break this up with the fact that he is moving expanding his lungs taking deeper breaths and just being out of bed.
[2024-11-05] MEDS: BUDESONIDE 0.5MG/2ML NEB 0.5 MG IH (06:23)
[2024-11-05 06:40] LABS: Basophils % 0.1 % (0.1-2.0); Hematocrit 36.8 % (42.0-52.0); Lymphocytes # 0.4 K/mm3 (0.7-4.5); Lymphocytes % 4.4 % (10-50); Mean Corpuscular HGB Conc 30.7 g/dL (31.8-35.4); Mean Corpuscular Hemoglobin 27.6 pg (27.0-31.2); Monocytes # 0.4 K/mm3 (0.1-1.0); Monocytes % 4.1 % (1.7-9.3); Neutrophils # 8.2 K/mm3 (1.8-7.8); Neutrophils % 90.8 % (37.0-80.0); Platelet Count 162 K/mm3 (142-424); Red Blood Count 4.09 M/mm3 (4.60-6.20); Red Cell Distribution Width 14.4 % (11.5-17.5)
[2024-11-05 06:53] LABS: Hemoglobin 11.4 g/dL (14.1-18.0)
[2024-11-05 06:57] LABS: Alanine Aminotransferase 24 U/L (12-78); Albumin Level 3.8 g/dl (3.5-5.0); Albumin/Globulin Ratio 1.4 (1.1-1.8); Alkaline Phosphatase 67 U/L (38-126); Anion Gap 8.3 mEq/L (5-15); Aspartate Amino Transferase 28 U/L (17-59); Bilirubin,Total 0.2 mg/dl (0.2-1.3); Blood Urea Nitrogen 20 mg/dl (9-20); Calcium 8.7 mg/dl (8.4-10.2); Carbon Dioxide 34 mmol/L (22.0-30.0); Chloride 100 mmol/L (98-107); Creatinine Clearance Estimated 123 mL/min (50-200); Estimated Glomerular Filt Rate 86 ml/min (>60); GFR (African American) 104 ML/MIN (>60); Globulin 2.7 g/dL (1.3-3.2); Glucose 165 mg/dl (74-100); Magnesium 1.9 mg/dl (1.6-2.3); Potassium 4.3 mmoL/L (3.5-5.1); Sodium 138 mmol/L (136-145); Total Protein,Serum 6.5 g/dl (6.3-8.2)
[2024-11-05] MEDS: ASPIRIN EC 81MG TABLET 81 MG PO (08:16)
[2024-11-05] MEDS: LISINOPRIL 10MG TABLET 10 MG PO (08:16)
[2024-11-05] MEDS: ATORVASTATIN 20MG TABLET 20 MG PO (08:17)
[2024-11-05] MEDS: METOPROLOL SUCCINATE XL 25MG TABLET 25 MG PO (08:17)
[2024-11-05] MEDS: DAPAGLIFLOZIN PROPANEDIOL 10 MG TABLET PO (08:17)
[2024-11-05] MEDS: ENOXAPARIN 40MG/0.4ML SYRINGE 40 MG SUBCUT (08:18)
[2024-11-05] MEDS: METHYLPREDNISOLONE SOD SUCC 125MG VIAL 60 MG IV (08:19)
[2024-11-05] MEDS: FLUTICASONE/UMECLIDIN/VILANTER 100/62.5/25MCG INHALER 1 PUFF IH (08:23)
--- NOTE | 2024-11-05 09:35 | EXP.ANES.II ---
[facility] Anesthesia Record Part II Anesthesia Record Part II Discharge Time: 15:15 Destination: Intensive Care Unit PACU nurse assessment reviewed?: Yes Patient Condition:: Good Anesthesia Complications:: None Swallowing reflex intact?: Yes Airway Patency: Patent Cyanosis?: No Blood Pressure: 114/76 SaO2: 97 Respiratory Rate: 18 Pulse Rate: 85 Temperature: 97.8 F Mental Status: Alert & Oriented Pain level:: 0 Nausea and/or vomitting:: None Intake, IV Amount: 0 Hydration: Adequate
--- NOTE | 2024-11-05 09:45 | EXP.PULM.PN ---
Subjective *Date: 11/05/24 *Time: 10:45 Interval history: No acute respiratory vents overnight. Patient admits continued improvement in his respiratory symptoms. Pulmonology Exam Inpatient Vital signs and Labs for Last 24 Hours: Temp Pulse Resp BP Pulse Ox O2 Del Method O2 Flow Rate 97.4 F L 96 H 18 107/58 L 94 L Nasal Cannula 3 11/05/24 08:00 11/05/24 09:37 11/05/24 09:36 11/05/24 08:00 11/05/24 08:00 11/05/24 08:00 11/05/24 08:00 FiO2 30 11/04/24 18:16 Laboratory Results - last 24 hr 11/04/24 10:47: POC Glucose 92 11/04/24 14:38: Specimen Source Left radial, O2 % 100, ABG pH 7.11 L*, ABG pCO2 96.0 H, ABG pO2 203.1 H, ABG HCO3 30.0 H, ABG Total CO2 33.0 H, ABG O2 Saturation 99, ABG Base Excess 0.6, Juan Test acceptable 11/04/24 16:30: Specimen Source Left radial, O2 % 30%, ABG pH 7.33 L, ABG pCO2 52.0 H, ABG pO2 60.4 L, ABG HCO3 26.9 H, ABG Total CO2 28.5 H, ABG O2 Saturation 90, ABG Base Excess 1.0, Juan Test Acceptable, Vent Rate 20 11/04/24 16:48: Sodium 137, Potassium 4.4, Chloride 101, Carbon Dioxide 33 H, Anion Gap 7.4, BUN 14, Creatinine 0.70, Estimated Creat Clear 161, Estimated GFR 115, Est GFR ( Amer) 139, Glucose 118 H, Calcium 8.8, Magnesium 1.7, Total Bilirubin 0.6, AST 33, ALT 24, Alkaline Phosphatase 91, C-Reactive Protein 7.5 H, Total Protein 7.2, Albumin 4.0, Globulin 3.2, Albumin/Globulin Ratio 1.3 11/04/24 17:05: Chlamy pneumoniae PCR Not detected, Adenovirus (PCR) Not detected, B. pertussis DNA (PCR) Not detected, Coronavirus OC43 (PCR) Not detected, Coronavirus HKU1 (PCR) Not detected, Coronavirus 229E (PCR) Not detected, SARS-CoV-2 (PCR) Not detected, Coronavirus NL63 (PCR) Not detected, Human Metapneumovir PCR Not detected, Influenza A (H1) PCR Not detected, Influ A (H1N1/09) PCR Not detected, Influenza A (H3) PCR Not detected, Influenza Type A (PCR) Not detected, Influenza Type B (PCR) Not detected, M. pneumoniae (PCR) Not detected, Parainfluenza 1 (PCR) Not detected, Parainfluenza 2 (PCR) Not detected, Parainfluenza 3 (PCR) Not detected, Parainfluenza 4 (PCR) Not detected, RSV (PCR) Not detected, Entero/Rhino (PCR) Not detected 11/04/24 21:59: WBC 8.7, RBC 4.56 L, Hgb 12.8 L, Hct 41.2 L, MCV 90.4, MCH 28.1, MCHC 31.1 L, RDW 14.3, Plt Count 125 L, MPV 10.6 H, Neut % (Auto) 93.7 H, Lymph % (Auto) 3.6 L, [place] % (Auto) 1.2 L, Eos % (Auto) 0.7, Baso % (Auto) 0.3, Neut # (Auto) 8.1 H, Lymph # (Auto) 0.3 L, [place] # (Auto) 0.1, Eos # (Auto) 0.1, Baso # (Auto) 0.0, Total Counted 100, Neutrophils % (Manual) 61, Lymphocytes % (Manual) 36, Monocytes % (Manual) 3, Platelet Estimate Normal, RBC Morphology Normal, ESR 18 11/05/24 05:33: WBC 9.0, RBC 4.09 L, Hgb 11.4 L D, Hct 36.8 L, MCV 90.0, MCH 27.6, MCHC 30.7 L, RDW 14.4, Plt Count 162 D, MPV 10.0, Neut % (Auto) 90.8 H, Lymph % (Auto) 4.4 L, [place] % (Auto) 4.1, Eos % (Auto) 0.0 L, Baso % (Auto) 0.1, Neut # (Auto) 8.2 H, Lymph # (Auto) 0.4 L, [place] # (Auto) 0.4, Eos # (Auto) 0.0, Baso # (Auto) 0.0, Sodium 138, Potassium 4.3, Chloride 100, Carbon Dioxide 34 H, Anion Gap 8.3, BUN 20 D, Creatinine 0.90 D, Estimated Creat Clear 123, Estimated GFR 86, Est GFR ( Amer) 104 D, Glucose 165 H D, Calcium 8.7, Magnesium 1.9 D, Total Bilirubin 0.2, AST 28, ALT 24, Alkaline Phosphatase 67, Total Protein 6.5, Albumin 3.8, Globulin 2.7, Albumin/Globulin Ratio 1.4 Temp Pulse Resp BP Pulse Ox O2 Del Method O2 Flow Rate 98.8 F 85 18 114/76 97 BiPAP 6 11/04/24 14:55 11/04/24 15:15 11/04/24 15:15 11/04/24 15:15 11/04/24 15:15 11/04/24 15:15 11/04/24 14:55 FiO2 30 11/04/24 15:48 Laboratory Results - last 24 hr 11/04/24 10:47: POC Glucose 92 11/04/24 14:38: Specimen Source Left radial, O2 % 100, ABG pH 7.11 L*, ABG pCO2 96.0 H, ABG pO2 203.1 H, ABG HCO3 30.0 H, ABG Total CO2 33.0 H, ABG O2 Saturation 99, ABG Base Excess 0.6, Juan Test acceptable I & O for Labs for Last 24 Hours: Intake & Output 11/02/24 11/04/24 11/04/24 11/05/24 23:59 00:59 23:59 23:59 Intake Total 1500 / 1500 480 / 480 Output Total 350 / 850 1150 / 1150 Balance 1150 / 650 -670 / -670 Weight 224 lb 3 oz 219 lb 6.4 oz Intake & Output 11/01/24 11/02/24 11/04/24 11/04/24 23:59 23:59 00:59 23:59 Intake Total 1500 / 1500 Balance 1500 / 1500 Weight 224 lb 3 oz Constitutional: Present severe distress Head: Present normocephalic and atraumatic ENT: Present normal exam, normal oropharynx and mucous membranes moist Neck: Present normal inspection and full ROM Respiratory: Present diminished air movement; Absent prolonged expiratory phase, wheezes or able to speak in complete sentences Cardiac: Present S1/S2, Tachycardia and radial pulses present GI: Present soft and distention; Absent tenderness or guarding Skin: Present intact; Absent cyanosis or jaundice Neuro: Present awake; Absent alert or oriented x 3 Extremities: Present normal inspection; Absent clubbing or cyanosis Psychiatric: Present unable to assess Assessment and Plan *Assessment and plan (1) Acute hypercapnic respiratory failure: Status: Acute Category: Medical Code(s): J96.02 - Acute respiratory failure with hypercapnia Plan Mr. 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 Chest x-ray postprocedure, continue to bilateral bili slightly worsening status post bronchoscopy. No pneumothorax appreciated. Interval update: No acute respiratory vents overnight. Improving hypercarbic respiratory failure. Venous blood gas from this morning pH of 7.33 and pCO2 54.9. Afebrile. Hemodynamically stable. No evidence of leukocytosis. Bronchoscopy results pending. Chest x-ray from yesterday continue to show bilateral infiltrates, awaiting bronchoscopy results. Plan: Continue oxygen supplementation to maintain O2 saturation goal of 90% and above. Patient currently doing 2 L nasal cannula to maintain sats of 90% improved. Previous using oxygen supplementation as a as needed basis but however needing most of the times during the daytime. Incentive spirometry and flutter valve DuoNebs every 4 hours along with Pulmicort every 12 scheduled. Upon discharge we will continue Trelegy 100 inhaler along with DuoNebs 4 times daily as needed Prednisone 40 mg daily x 5 days Following bronchoscopy results No need for antibiotics at this point of time # Thank you for involving pulmonary in this patient care will follow patient in pulmonary clinic 5 to 7 days postdischarge to follow-up on bronchoscopy result
[2024-11-05 10:24] LABS: VBG Base Excess 2.6 mmol/L (-2.4-2.3); VBG HCO3 28.5 mmol/L (23-30); VBG Oxygen Saturation 68.9 % (50-70); VBG PCO2 54.9 mmol/L (35-51); VBG PH 7.33 mmol/L (7.31-7.41); VBG PO2 36.1 mmol/L (28-40); VBG Total CO2 30.2 mmol/L (23-27)
[2024-11-05 10:26] LABS: Lactate Venous 2.7 mmol/L (0.4-2.0)
--- NOTE | 2024-11-05 12:07 | P.DS_ITS ---
General Admission date:: 11/04/24 HPI HPI HPI: Mr. Gilbert is a 59-year-old male with history of tobacco use disorder, asthma greater than 30 pack years, has had previous imaging showing mediastinal lymphadenopathy and pleural thickening along with multiple lung nodules. History of emphysema/COPD, hypertension. Presented for elective bronchoscopy with EBUS and FNA as an outpatient. Procedure performed for exertional dyspnea. Tolerated procedure well however after procedure had worsening mentation and was not waking from anesthesia. Found to be hypercapnic with respiratory failure. Was placed on BiPAP. Medicine consulted for admission and further assistance with management. Patient admitted to the ICU on BiPAP. Initial blood gas with pH of 7.11, pCO2 of 96 on ABG. Patient is afebrile. Was at baseline level of function prior to procedure. On my evaluation after arrival to the ICU, patient is tolerating BiPAP. He is interactive on exam and asking questions. Gave me a fist bump on introduction. Answering questions appropriately. Asking for something to drink as his mouth is dry. Denies any chest pain, nausea, vomiting. Afebrile and hemodynamically stable. Hospital Course Hospital Course Hospital Course: Andrei Gilbert 59-year-old male who presented for outpatient elective bronchoscopy. After the procedure developed hypercapnic respiratory failure needing BiPAP. Medicine consulted for admission. #Acute hypercapnic respiratory failure #COPD exacerbation #Pleural thickening/mediastinal lymphadenopathy - Postprocedural chest x-ray shows continued bilateral edema/airspace disease slightly worse than before bronchoscopy per my review. No pneumothorax present. - Initial ABG with pH 7.11, pCO2 96. Placed on BiPAP. Repeat ABG improved to 7.33, pCO2 of 52, weaned off BiPAP. ? Clinically improved with BiPAP (initial), DuoNebs, Pulmicort, steroids. No signs of infection. ? Weaned back to 2.5 L with appropriate saturations which is baseline for patient. ? Discharged with prednisone 40 mg for 3 more days. ? Patient will follow-up with pulmonology within 1 week for further evaluation/discussion, management regarding EBUS biopsy results. Continue dapagliflozin 10 mg daily for prediabetes Continue lisinopril 10 mg daily and metoprolol succinate 25 mg daily for hyperte nsion Aspirin 81 mg daily for CAD Lipitor 20 mg daily for hyperlipidemia Exam Data for Last 24 hours Vital signs and Labs for Last 24 Hours: Temp Pulse Resp BP Pulse Ox O2 Del Method O2 Flow Rate 97.4 F L 94 H 16 111/58 L 93 L Nasal Cannula 2.5 11/05/24 08:00 11/05/24 11:00 11/05/24 11:00 11/05/24 11:00 11/05/24 11:00 11/05/24 11:00 11/05/24 11:00 FiO2 30 11/04/24 18:16 Laboratory Results - last 24 hr 11/04/24 14:38: Specimen Source Left radial, O2 % 100, ABG pH 7.11 L*, ABG pCO2 96.0 H, ABG pO2 203.1 H, ABG HCO3 30.0 H, ABG Total CO2 33.0 H, ABG O2 Saturation 99, ABG Base Excess 0.6, Juan Test acceptable 11/04/24 16:30: Specimen Source Left radial, O2 % 30%, ABG pH 7.33 L, ABG pCO2 52.0 H, ABG pO2 60.4 L, ABG HCO3 26.9 H, ABG Total CO2 28.5 H, ABG O2 Saturation 90, ABG Base Excess 1.0, Juan Test Acceptable, Vent Rate 20 11/04/24 16:48: Sodium 137, Potassium 4.4, Chloride 101, Carbon Dioxide 33 H, Anion Gap 7.4, BUN 14, Creatinine 0.70, Estimated Creat Clear 161, Estimated GFR 115, Est GFR ( Amer) 139, Glucose 118 H, Calcium 8.8, Magnesium 1.7, Total Bilirubin 0.6, AST 33, ALT 24, Alkaline Phosphatase 91, C-Reactive Protein 7.5 H, Total Protein 7.2, Albumin 4.0, Globulin 3.2, Albumin/Globulin Ratio 1.3 11/04/24 17:05: Chlamy pneumoniae PCR Not detected, Adenovirus (PCR) Not detected, B. pertussis DNA (PCR) Not detected, Coronavirus OC43 (PCR) Not detected, Coronavirus HKU1 (PCR) Not detected, Coronavirus 229E (PCR) Not detected, SARS-CoV-2 (PCR) Not detected, Coronavirus NL63 (PCR) Not detected, Human Metapneumovir PCR Not detected, Influenza A (H1) PCR Not detected, Influ A (H1N1/09) PCR Not detected, Influenza A (H3) PCR Not detected, Influenza Type A (PCR) Not detected, Influenza Type B (PCR) Not detected, M. pneumoniae (PCR) Not detected, Parainfluenza 1 (PCR) Not detected, Parainfluenza 2 (PCR) Not detected, Parainfluenza 3 (PCR) Not detected, Parainfluenza 4 (PCR) Not detected, RSV (PCR) Not detected, Entero/Rhino (PCR) Not detected 11/04/24 21:59: WBC 8.7, RBC 4.56 L, Hgb 12.8 L, Hct 41.2 L, MCV 90.4, MCH 28.1, MCHC 31.1 L, RDW 14.3, Plt Count 125 L, MPV 10.6 H, Neut % (Auto) 93.7 H, Lymph % (Auto) 3.6 L, [place] % (Auto) 1.2 L, Eos % (Auto) 0.7, Baso % (Auto) 0.3, Neut # (Auto) 8.1 H, Lymph # (Auto) 0.3 L, [place] # (Auto) 0.1, Eos # (Auto) 0.1, Baso # (Auto) 0.0, Total Counted 100, Neutrophils % (Manual) 61, Lymphocytes % (Manual) 36, Monocytes % (Manual) 3, Platelet Estimate Normal, RBC Morphology Normal, ESR 18 11/05/24 05:33: WBC 9.0, RBC 4.09 L, Hgb 11.4 L D, Hct 36.8 L, MCV 90.0, MCH 27.6, MCHC 30.7 L, RDW 14.4, Plt Count 162 D, MPV 10.0, Neut % (Auto) 90.8 H, Lymph % (Auto) 4.4 L, [place] % (Auto) 4.1, Eos % (Auto) 0.0 L, Baso % (Auto) 0.1, Neut # (Auto) 8.2 H, Lymph # (Auto) 0.4 L, [place] # (Auto) 0.4, Eos # (Auto) 0.0, Baso # (Auto) 0.0, Sodium 138, Potassium 4.3, Chloride 100, Carbon Dioxide 34 H, Anion Gap 8.3, BUN 20 D, Creatinine 0.90 D, Estimated Creat Clear 123, Estimated GFR 86, Est GFR ( Amer) 104 D, Glucose 165 H D, Calcium 8.7, Magnesium 1.9 D, Total Bilirubin 0.2, AST 28, ALT 24, Alkaline Phosphatase 67, Total Protein 6.5, Albumin 3.8, Globulin 2.7, Albumin/Globulin Ratio 1.4 11/05/24 10:03: VBG pH 7.33, VBG pCO2 54.9 H, VBG pO2 36.1, VBG HCO3 28.5, VBG Total CO2 30.2 H, VBG O2 Saturation 68.9, VBG Base Excess 2.6 H, VBG Lactic Acid 2.7 H I & O for Last 24 hours: Intake & Output 11/02/24 11/04/24 11/04/24 11/05/24 23:59 00:59 23:59 23:59 Intake Total 1500 / 1500 480 / 480 Output Total 350 / 850 1150 / 1150 Balance 1150 / 650 -670 / -670 Weight 101.69 kg 99.518 kg Microbiology Reports for the Last 24 Hours: Microbiology 11/04/24 17:05 Anus CRE Surveillance Culture - Final Constitutional Constitutional: no acute distress and obese *Routine HEENT Exam Head: Present normocephalic Eye: Present EOMI and PERRL ENT: Present mucous membranes moist *Routine Neck Exam Neck: Present supple; Absent lymphadenopathy *Routine Respiratory Exam Respiratory: Present CTA bilaterally *Routine Cardiovascular Exam Cardiovascular: Present RRR *Routine Abdominal Exam Abdominal: Present soft and normoactive bowel sounds; Absent tenderness *Routine Extremities Exam Extremities: Absent cyanosis, clubbing or edema *Routine Skin Exam Skin: Present warm; Absent rash *Routine Neurological Exam Neurological: Present alert and oriented X3 Results Data Completed and Pending Labs on day of discharge: Labs from last 24 hours 11/05/24 11/05/24 11/04/24 10:03 05:33 21:59 WBC 9.0 8.7 RBC 4.09 L 4.56 L Hgb 11.4 L D 12.8 L Hct 36.8 L 41.2 L MCV 90.0 90.4 MCH 27.6 28.1 MCHC 30.7 L 31.1 L RDW 14.4 14.3 Plt Count 162 D 125 L MPV 10.0 10.6 H Neut % (Auto) 90.8 H 93.7 H Lymph % (Auto) 4.4 L 3.6 L [place] % (Auto) 4.1 1.2 L Eos % (Auto) 0.0 L 0.7 Baso % (Auto) 0.1 0.3 Neut # (Auto) 8.2 H 8.1 H Lymph # (Auto) 0.4 L 0.3 L [place] # (Auto) 0.4 0.1 Eos # (Auto) 0.0 0.1 Baso # (Auto) 0.0 0.0 Total Counted 100 Neutrophils % (Manual) 61 Lymphocytes % (Manual) 36 Monocytes % (Manual) 3 Platelet Estimate Normal RBC Morphology Normal ESR 18 Specimen Source O2 % ABG pH ABG pCO2 ABG pO2 ABG HCO3 ABG Total CO2 ABG O2 Saturation ABG Base Excess Juan Test VBG pH 7.33 VBG pCO2 54.9 H VBG pO2 36.1 VBG HCO3 28.5 VBG Total CO2 30.2 H VBG O2 Saturation 68.9 VBG Base Excess 2.6 H VBG Lactic Acid 2.7 H Vent Rate Sodium 138 Potassium 4.3 Chloride 100 Carbon Dioxide 34 H Anion Gap 8.3 BUN 20 D Creatinine 0.90 D Estimated Creat Clear 123 Estimated GFR 86 Est GFR ( Amer) 104 D Glucose 165 H D Calcium 8.7 Magnesium 1.9 D Total Bilirubin 0.2 AST 28 ALT 24 Alkaline Phosphatase 67 C-Reactive Protein Total Protein 6.5 Albumin 3.8 Globulin 2.7 Albumin/Globulin Ratio 1.4 Chlamy pneumoniae PCR Adenovirus (PCR) B. pertussis DNA (PCR) Coronavirus OC43 (PCR) Coronavirus HKU1 (PCR) Coronavirus 229E (PCR) SARS-CoV-2 (PCR) Coronavirus NL63 (PCR) Human Metapneumovir PCR Influenza A (H1) PCR Influ A (H1N1/09) PCR Influenza A (H3) PCR Influenza Type A (PCR) Influenza Type B (PCR) M. pneumoniae (PCR) Parainfluenza 1 (PCR) Parainfluenza 2 (PCR) Parainfluenza 3 (PCR) Parainfluenza 4 (PCR) RSV (PCR) Entero/Rhino (PCR) 11/04/24 11/04/24 11/04/24 17:05 16:48 16:30 WBC RBC Hgb Hct MCV MCH MCHC RDW Plt Count MPV Neut % (Auto) Lymph % (Auto) [place] % (Auto) Eos % (Auto) Baso % (Auto) Neut # (Auto) Lymph # (Auto) [place] # (Auto) Eos # (Auto) Baso # (Auto) Total Counted Neutrophils % (Manual) Lymphocytes % (Manual) Monocytes % (Manual) Platelet Estimate RBC Morphology ESR Specimen Source Left radial O2 % 30% ABG pH 7.33 L ABG pCO2 52.0 H ABG pO2 60.4 L ABG HCO3 26.9 H ABG Total CO2 28.5 H ABG O2 Saturation 90 ABG Base Excess 1.0 Juan Test Acceptable VBG pH VBG pCO2 VBG pO2 VBG HCO3 VBG Total CO2 VBG O2 Saturation VBG Base Excess VBG Lactic Acid Vent Rate 20 Sodium 137 Potassium 4.4 Chloride 101 Carbon Dioxide 33 H Anion Gap 7.4 BUN 14 Creatinine 0.70 Estimated Creat Clear 161 Estimated GFR 115 Est GFR ( Amer) 139 Glucose 118 H Calcium 8.8 Magnesium 1.7 Total Bilirubin 0.6 AST 33 ALT 24 Alkaline Phosphatase 91 C-Reactive Protein 7.5 H Total Protein 7.2 Albumin 4.0 Globulin 3.2 Albumin/Globulin Ratio 1.3 Chlamy pneumoniae PCR Not detected Adenovirus (PCR) Not detected B. pertussis DNA (PCR) Not detected Coronavirus OC43 (PCR) Not detected Coronavirus HKU1 (PCR) Not detected Coronavirus 229E (PCR) Not detected SARS-CoV-2 (PCR) Not detected Coronavirus NL63 (PCR) Not detected Human Metapneumovir PCR Not detected Influenza A (H1) PCR Not detected Influ A (H1N1/09) PCR Not detected Influenza A (H3) PCR Not detected Influenza Type A (PCR) Not detected Influenza Type B (PCR) Not detected M. pneumoniae (PCR) Not detected Parainfluenza 1 (PCR) Not detected Parainfluenza 2 (PCR) Not detected Parainfluenza 3 (PCR) Not detected Parainfluenza 4 (PCR) Not detected RSV (PCR) Not detected Entero/Rhino (PCR) Not detected 11/04/24 14:38 WBC RBC Hgb Hct MCV MCH MCHC RDW Plt Count MPV Neut % (Auto) Lymph % (Auto) [place] % (Auto) Eos % (Auto) Baso % (Auto) Neut # (Auto) Lymph # (Auto) [place] # (Auto) Eos # (Auto) Baso # (Auto) Total Counted Neutrophils % (Manual) Lymphocytes % (Manual) Monocytes % (Manual) Platelet Estimate RBC Morphology ESR Specimen Source Left radial O2 % 100 ABG pH 7.11 L* ABG pCO2 96.0 H ABG pO2 203.1 H ABG HCO3 30.0 H ABG Total CO2 33.0 H ABG O2 Saturation 99 ABG Base Excess 0.6 Juan Test acceptable VBG pH VBG pCO2 VBG pO2 VBG HCO3 VBG Total CO2 VBG O2 Saturation VBG Base Excess VBG Lactic Acid Vent Rate Sodium Potassium Chloride Carbon Dioxide Anion Gap BUN Creatinine Estimated Creat Clear Estimated GFR Est GFR ( Amer) Glucose Calcium Magnesium Total Bilirubin AST ALT Alkaline Phosphatase C-Reactive Protein Total Protein Albumin Globulin Albumin/Globulin Ratio Chlamy pneumoniae PCR Adenovirus (PCR) B. pertussis DNA (PCR) Coronavirus OC43 (PCR) Coronavirus HKU1 (PCR) Coronavirus 229E (PCR) SARS-CoV-2 (PCR) Coronavirus NL63 (PCR) Human Metapneumovir PCR Influenza A (H1) PCR Influ A (H1N1/09) PCR Influenza A (H3) PCR Influenza Type A (PCR) Influenza Type B (PCR) M. pneumoniae (PCR) Parainfluenza 1 (PCR) Parainfluenza 2 (PCR) Parainfluenza 3 (PCR) Parainfluenza 4 (PCR) RSV (PCR) Entero/Rhino (PCR) DS: Diagnosis Discharge Diagnosis (1) Acute hypercapnic respiratory failure: Status: Acute Code(s): J96.02 - Acute respiratory failure with hypercapnia Meds Home Medications and Allergies Home Medications ?Medication ?Instructions ?Recorded ?Confirmed ?Type inhalational spacing device #1 ea 11/21/23 10/30/24 History (Aerochamber Plus Flow-Vu) aspirin 81 mg tablet,delayed 81 mg PO DAILY 06/06/24 11/04/24 History release atorvastatin 20 mg tablet 20 mg PO DAILY 06/06/24 10/30/24 History lisinopril 10 mg tablet 10 mg PO DAILY 06/06/24 10/30/24 History metoprolol succinate 25 mg 25 mg PO DAILY 06/06/24 11/04/24 History tablet,extended release 24 hr dapagliflozin propanediol 10 mg 10 mg PO DAILY #90 tabs 08/19/24 10/30/24 Rx tablet (Farxiga) fluticasone fur. 100 mcg-umeclid 1 inh inhalation DAILY 09/13/24 11/04/24 History 62.5 mcg-vilant 25 mcg inhalat.powder (Trelegy Ellipta) albuterol sulfate 90 mcg/actuation 2 puff inhalation Q4HP PRN 11/04/24 11/04/24 History aerosol inhaler shortness of breath or wheezing prednisone 20 mg tablet 40 mg (2 x 20 mg) PO DAILY 3 days 11/05/24 Rx #6 tabs New Prescriptions to Start Prescriptions: prednisone Rickey Suggs Allergies Allergy/AdvReac Type Severity Reaction Status Date / Time No Known Allergies Allergy Verified 11/04/24 10:38 Discharge Plan Disposition Patient Disposition: Home, Self-Care Condition: Fair Follow up Plan Follow up with: Kandi Bernstein APRN [Primary Care Provider] - 11/19/24 11:00 am Yasmin Ingram MD [Physician] - 11/11/24 11:40 am Prescriptions/Medication Reconciliation: New prednisone 20 mg tablet 40 mg PO DAILY 3 Days Qty: 6 0RF Continued (DME) Aerochamber Plus Flow-Vu Spacer See Rx Instructions .ROUTE .MEDSUPPLY Qty: 1 Rx Instructions: As directed lisinopril 10 mg tablet 10 mg PO DAILY Patient Comments: TAKE 1 TABLET BY MOUTH DAILY. metoprolol succinate 25 mg tablet extended release 24 hr 25 mg PO DAILY Patient Comments: TAKE 1 TABLET BY MOUTH DAILY. aspirin 81 mg tablet,delayed release (DR/EC) 81 mg PO DAILY atorvastatin 20 mg tablet 20 mg PO DAILY Patient Comments: TAKE 1 TABLET BY MOUTH DAILY. dapagliflozin propanediol [Farxiga] 10 mg tablet 10 mg PO DAILY Qty: 90 1RF Trelegy Ellipta 100-62.5-25 mcg blister with device 1 inh INHALATION DAILY Patient Comments: INHALE 1 PUFF INTO THE LUNGS ONCE DAILY. albuterol sulfate 90 mcg/actuation HFA aerosol inhaler 2 puff inhalation Q4HP PRN (Reason: shortness of breath or wheezing) Problem Reconciliation Problems Reviewed?: Yes Patient Discharge Instructions Print Language: Green[place]ic Providers Primary Care Provider: Kandi Bernstein Admit Provider: Jake Hitchcock Attending Provider: Jake Hitchcock
[2024-11-05 14:27] LABS: Reflex Lactic Add Lactic Reflex
--- NOTE | 2024-11-06 12:09 | CARE MANAGER ---
Spoke with patient related to insurance. Felipe PRIETO states they are secondary. Patient states that it is the only insurance he has and he will contact them and let them know.
--- NOTE | 2024-11-07 10:09 | SW/DCPLANNER ---
Spoke with patient on the phone. Patient stated that he is doing well. Patient stated he is aware of his upcoming appointments. Patient stated that he was able to get his medicine from clinic pharmacy. Patient stated that he has no conerns or questions at this time. Sen Stock
== END 2024-11-05 13:45 | disposition home or self-care (01) ==
LOC: ICU 15:08
PROVIDERS: Internal Medicine Pulmonary Disease; Nurse Anesthetist, Certified Registered; Admitting Provider Internal Medicine Adolescent Medicine; PCP Nurse Practitioner; Visit Provider Internal Medicine Adolescent Medicine
PROC: BB4BZZZ Ultrasonography of Pleura (ICD-10-PCS; CPT 31624; principal; 2024-11-04 11:30)
DX: J95.821 Acute postprocedural respiratory failure (principal); J44.1 Chronic obstructive pulmonary disease with (acute) exacerbation; J43.8 Other emphysema; I10 Essential (primary) hypertension; R73.03 Prediabetes; R91.8 Other nonspecific abnormal finding of lung field; R59.0 Localized enlarged lymph nodes; E66.9 Obesity, unspecified; I25.10 Atherosclerotic heart disease of native coronary artery without angina pectoris; E78.5 Hyperlipidemia, unspecified; Z79.84 Long term (current) use of oral hypoglycemic drugs; Z79.51 Long term (current) use of inhaled steroids; Z79.82 Long term (current) use of aspirin; Z79.899 Other long term (current) drug therapy; Z87.891 Personal history of nicotine dependence; Z80.9 Family history of malignant neoplasm, unspecified; Z82.49 Family history of ischemic heart disease and other diseases of the circulatory system; Z68.31 Body mass index [BMI] 31.0-31.9, adult; R06.02 Shortness of breath; J92.9 Pleural plaque without asbestos; R91.1 Solitary pulmonary nodule
CPT/HCPCS: 31624; 31628; 31653; 71045; 76000; 80053; 82803; 82962; 83735; 85007; 85025; 85027; 85651; 86140; 87081; 87633; 94640; 94660; 94760; 94761; J3490; G0378; J1100; J1596; J1650; J2250; J2405; J2919; J3010; J7120; J7613; J7620

== ENCOUNTER 2024-11-11 12:33 | Outpatient (CLI) | payer MEDICAID, SELFPAY ==
[2024-11-11 12:46] LABS: Anti-Centromere B Antibodies ND; Anti-DNA (DS) Ab Qn ND; Anti-Jo-1 ND; Antichromatin Antibodies ND; Antiscleroderma-70 Antibodies ND; RNP Antibodies ND; Sjogren's Anti-SS-A ND; Sjogren's Anti-SS-B ND
[2024-11-11 13:51] LABS: C-Reactive Protein 38.6 mg/L (0-4)
[2024-11-12 09:12] LABS: Antinuclear Antibodies (ANA) Negative (Negative)
[2024-11-12 15:18] LABS: Angiotensin Converting Enzyme 29 U/L (14-82)
[2024-11-13 05:09] LABS: Cytoplasmic (C-ANCA) <1:20 titer (Neg:<1:20); Perinuclear (P-ANCA) <1:20 titer (Neg:<1:20)
[2024-11-13 08:28] LABS: Antiproteinase 3 (PR-3) Abs <0.2 units (0.0-0.9); Myeloperoxidase Antibody <0.2 units (0.0-0.9)
[2024-11-15 10:49] LABS: Aspergillus fumigatus IgG Negative (Negative); Pigeon Serum Abs Negative (Negative)
[2024-11-18 01:18] LABS: Alpha-1-Antitrypsin 163 mg/dL (101-187)
== END 2024-11-11 23:59 | disposition home or self-care (01) ==
LOC: LAB 12:34
PROVIDERS: PCP Nurse Practitioner; Visit Provider Internal Medicine Pulmonary Disease
DX: R06.09 Other forms of dyspnea (principal); J84.9 Interstitial pulmonary disease, unspecified; J43.9 Emphysema, unspecified; Z87.891 Personal history of nicotine dependence
CPT/HCPCS: 36415; 82103; 82104; 82164; 83520; 86036; 86038; 86140; 86225; 86235; 86331; 86602; 86606; 86609

== ENCOUNTER 2024-12-31 14:45 | Outpatient (CLI) | payer MEDICAID, SELFPAY ==
[2024-12-31 18:31] LABS: Basophils # 0.1 K/mm3 (0-0.2); Basophils % 0.5 % (0.1-2.0); Eosinophils # 0.3 Kmm3 (0.0-0.4); Eosinophils % 2.2 % (0.1-12.0); Hematocrit 46.7 % (42.0-52.0); Hemoglobin 14.7 g/dL (14.1-18.0); Immature Granulocytes # 0.32 10^3uL; Immature Granulocytes % 2.4 %; Lymphocytes # 1.6 K/mm3 (0.7-4.5); Lymphocytes % 12.2 % (10-50); Mean Corpuscular HGB Conc 31.5 g/dL (31.8-35.4); Mean Corpuscular Hemoglobin 28.2 pg (27.0-31.2); Mean Corpuscular Volume 89.6 fl (80-94); Mean Platelet Volume 10.4 fl (7.4-10.4); Monocytes % 7.1 % (1.7-9.3); Neutrophils # 10.1 K/mm3 (1.8-7.8); Neutrophils % 75.6 % (37.0-80.0); Nucleated Red Blood Cells # 0 10^3/uL; Nucleated Red Blood Cells % 0 %; Platelet Count 184 K/mm3 (142-424); Red Blood Count 5.21 M/mm3 (4.60-6.20); Red Cell Distribution Width 14.4 % (11.5-17.5); Red Cell Distribution Width-SD 47.2 fL; White Blood Count 13.4 K/mm3 (4.8-10.8)
[2024-12-31 19:08] LABS: Creatinine,Urine Random 129 mg/dL (Not Estab.); Microalbumin < 6.000 mg/L (0-16.7)
[2024-12-31 19:35] LABS: Anion Gap 7.7 mEq/L (5-15); Blood Urea Nitrogen 19 mg/dl (9-20); Carbon Dioxide 29 mmol/L (22.0-30.0); Chloride 104 mmol/L (98-107); Estimated Glomerular Filt Rate 115 ml/min (>60); GFR (African American) 139 ML/MIN (>60); Potassium 3.7 mmoL/L (3.5-5.1); Sodium 137 mmol/L (136-145)
[2024-12-31 19:36] LABS: Alanine Aminotransferase 19 U/L (12-78); Albumin/Globulin Ratio 1.6 (1.1-1.8); Alkaline Phosphatase 85 U/L (38-126); Aspartate Amino Transferase 17 U/L (17-59); Bilirubin,Total 0.4 mg/dl (0.2-1.3); Calcium 9.1 mg/dl (8.4-10.2); Globulin 2.5 g/dL (1.3-3.2); Glucose 111 mg/dl (74-100); Total Protein,Serum 6.5 g/dl (6.3-8.2)
[2024-12-31 20:23] LABS: Vitamin B12 356 pg/mL (239-931)
[2024-12-31 21:58] LABS: Prostate Specific Ag Screen 0.7 ng/ml (0.0-4.0)
[2024-12-31 22:28] LABS: Hemoglobin A1C 5.7 % (4.0-6.0)
== END 2024-12-31 23:59 | disposition home or self-care (01) ==
LOC: LAB.DROPOF 01-01 12:08
PROVIDERS: PCP Nurse Practitioner; Visit Provider Nurse Practitioner
DX: J44.1 Chronic obstructive pulmonary disease with (acute) exacerbation (principal); R73.03 Prediabetes; I10 Essential (primary) hypertension; Z12.5 Encounter for screening for malignant neoplasm of prostate
CPT/HCPCS: 80053; 82043; 82570; 82607; 83036; 84443; 85025; G0103

== ENCOUNTER 2025-01-24 09:46 | Outpatient (CLI) | payer MEDICAID, SELFPAY ==
--- NOTE | 2025-01-24 10:30 | MR_ITS ---
APPROVED REPORT Change Release Manager: CLINICAL INDICATION Evaluation for cardiac sarcoidosis TECHNIQUE Image Acquisition: Cardiac magnetic resonance (CMR) was performed on Siemens Espree MRI 1.5T scanner. Software platform sequences were performed using the Siemens Socialare MR B19 platform. A set of three-plane, low-resolution, large yzbtw-ur-step localizers were initially acquired. Then axial, coronal, sagittal TrueFISP, as well as axial HASTE images, were obtained. These were followed by gated TrueFISP breathold cinematic sequences obtained in the short axis with 8 mm slices and 2 mm gaps, 2-chamber (vertical long axis), 3-chamber, 4-chamber (horizontal long axis). A bolus of contrast was injected intravenously with first-pass sequences obtained in the short axis and four-chamber planes. After approximately 10 minutes, a TI partner marketing manager sequence was performed to determine the optimal TI time. Using the optimized TI time, delayed contrast enhancement segmented inversion???recovery TurboFLASH sequences were obtained in the short axis, 2-chamber, 3-chamber, and 4-chamber projections. 2D-velocity phase mapping was performed. Functional parameters were calculated by offline analysis on an independent workstation ([employer] Platform, [employer]). Contrast: ProHance??? (Gadoteridol) FINDINGS MORPHOLOGY AND FUNCTION Left ventricle: The left ventricle is normal in size. The indexed left ventricular end-diastolic volume (LVEDVi) is 72 ml/m2 (reference range 57-105 ml/m2 in males, 56-96 ml/m2 in females). Normal left ventricular systolic function is present. There is increased left ventricular wall thickness, up to 12.2 mm. The septum is asynchronous. There are no regional wall motion abnormalities noted. LVEF is calculated at 63.0% (reference range 57-77%). Right ventricle: The right ventricle is normal in size. The indexed right ventricular end-diastolic volume (RVEDVi) is 62 ml/m2 (reference range 61-121 ml/m2 in males, 48-112 ml/m2 in females). Therei is mild reduction in right ventricular systolic function. RVEF is calculated at 41% (reference range 52-72% in males, 51-71% in females). Atria: The left atrium is normal in size. The maximum indexed left atrial volume is 19 ml/m2 (reference range 26-52 ml/m2 in males, 27-53 ml/m2 in females). The right atrium is normal in size. The maximum indexed right atrial volume is 22 ml/m2 (reference range 18-90 ml/m2). Aorta: The diameter of the aortic annulus is normal, measuring 24 mm (coronal view reference range 21-30 mm in males, 19-27 mm in females). The diameter of the aortic sinus is normal, measuring 38 mm (coronal view reference range 25-42 mm in males, 24-36 mm in females). The diameter of the sinotubular junction is normal, measuring 29 mm (coronal view reference range 18-32 mm in males, 18-28 mm in females). The diameters of the ascending and descending thoracic aorta are normal. Main pulmonary artery: The main pulmonary artery diameter is increased, measuring 32 mm in diameter. Pericardium: The pericardial thickness is normal. The pericardial thickness measures 1.6 mm (normal < 4.0 mm). There is no pericardial effusion. VALVES The valvular morphologies in the visualized sequences appear normal. There is no significant valvular stenosis or regurgitation of the mitral, aortic, tricuspid, or pulmonic valve noted visually. Systolic anterior motion of the mitral valve is not visualized. Ratio of pulmonary to systemic flow, Qp:Qs ratio = 1.1 (normal < or = 1.2, hemodynamically significant shunt > 1.5), demonstrating no evidence of hemodynamically significant shunt. TISSUE CHARACTERIZATION Resting Perfusion: Normal myocardial blood flow at rest. No evidence of resting hypoperfusion. Myocardial Fibrosis and/or edema: Normal gadolinium kinetics are present. No evidence of late gadolinium enhancement is noted, consistent with absence of myocardial scarring, infarction, or necrosis. T2-weighted imaging demonstrates no evidence of myocardial edema or inflammation. OTHER Parenchymal hyperintense pulmonary opacities are present bilaterally. IMPRESSION Normal LV size with normal LV systolic function. LVEDVi= 72 ml/m2 and LVEF= 63.0%. There is increased left ventricular wall thickness, up to 12.2 mm. Marked septal asynchrony, but no evidence of septal bounce on CMR. Normal RV size with mild reduction in RV systolic function. RVEDVi= 62 ml/m2 and RVEF= 41.0%. No atrial enlargement. No CMR evidence of myocardial scarring, infarction, or necrosis. No evidence of myocardial edema or inflammation. Perfusion analysis demonstrates normal blood flow at rest with no evidence of resting hypoperfusion. Ratio of pulmonary to systemic flow, Qp:Qs ratio = 1.1 (normal < or = 1.2, hemodynamically significant shunt > 1.5), demonstrating no evidence of hemodynamically significant shunt. Mildly dilated pulmonay artery, measuring 32 mm in diameter. Parenchymal hyperintense pulmonary opacities are present bilaterally. Overall, the CMR demonstrates normal LV systolic function with mild RV dysfunction and dilated pulmonary artery, suggestive of underlying pulmonary disease in the setting of bilateral pulmonary opacities. No CMR evidence of cardiac sarcoidosis or infiltrative cardiomyopathy. COMPARISON None CRITICAL RESULT None COMMUNICATION The above findings were relayed to the patient at the time of the routine outpatient cardiology follow-up visit, prior to dictation of this report. The findings of this cardiac MR were reviewed, reported, and signed by Emiliano Todd MD (Wellness Educator). Conclusion Electronically signed by : Marielena Todd MD 02/16/2025 22:19:16
[2025-01-24] MEDS: SODIUM CHLORIDE 0.9% 10ML SYR (RAD ONLY) 10 ML IV (11:53)
[2025-01-24] MEDS: SODIUM CHLORIDE 0.9% 50ML BAG 50 ML IV (11:54)
[2025-01-24] MEDS: GADOTERIDOL INJ 20ML SYRINGE 20 ML IV (11:54)
== END 2025-01-24 23:59 | disposition home or self-care (01) ==
LOC: RAD 09:47
PROVIDERS: PCP Nurse Practitioner; Visit Provider Internal Medicine
DX: I28.1 Aneurysm of pulmonary artery (principal); I11.9 Hypertensive heart disease without heart failure; D86.2 Sarcoidosis of lung with sarcoidosis of lymph nodes
CPT/HCPCS: 75561; A9576

== ENCOUNTER 2025-02-10 14:29 | Outpatient (CLI) | payer MEDICAID, SELFPAY ==
--- OUTSIDE RECORDS SUMMARY | 2025-02-10 14:34 | XMS_ITS | Encounter Summary ---
Author Organization [place] [address] Care Team Providers Care District Medical Examiner Name Role Phone Jake Matos MD Primary Care Provider [phone] Reason for Visit * Reason Comments Medication Refill Encounter Details Date Type Department Care Team (Late st Contact Info) Description 12/27/2024 Refill [facility] [place] [address] Jake Matos MD [address] [place] [address] [place] [address] Medication Refill Social History Tobacco Use Types Packs/Day Years Used Date Smoking Tobacco: Former Cigarettes 1 42.1 1 - 06/28/2023 Smokeless Tobacco: Never Alcohol Use Standard Drinks/Week Comments Not Currently 0 (1 standard drink = 0.6 oz pur e alcohol) [facility] Utilities Answer Date Recorded In the past 12 months has [employer] electric, gas, oil, or water company threatened to shut off services in your home? No 10/26/2023 Overall Financial Resource Strain (CARDIA) Answe r Date Recorded How hard is it for you to pa y for the very basics like food, housing, medical care, and heating? Not hard at all 10/26/2023 PHQ-2 Answer Date Recorded PHQ-2 Total Score 0 10/26/2023 [facility] of Occupat ional Health - Occupational Stress Questionnaire Answer Date Recorded Do you feel stress - tense, restless, nervous, or anxious, or unable to sleep at night because your mind is troubled all the time - these days? Not at all 10/26/2023 Exercise Vital Sign Answer Date Recorde d On average, how many days pe r week do you engage in moderate to strenuous exercise (like a brisk walk)? 0 days 10/26/2023 On average, how many minutes do you engage in exercise at this level? 0 min 10/26/2023 Hunger Vital Sign Answer Date Recorded Within the past 12 months, y ou worried that your food would run out before you got the money to buy more. Never true 10/26/19 24 Within the past 12 months, t he food you bought just didn't last and you didn't have money to get more. Never true 10/26/2023 PRAPARE - Transportation Answer Date Re corded In the past 12 months, has l ack of transportation kept you from medical appointments or from getting medications? No 11/2021 In the past 12 months, has l ack of transportation kept you from meetings, work, or from getting things needed for daily living? No 05/31/2022 [facility] IP Transportation Answer D ate Recorded In the past 12 months, has l ack of reliable transportation kept you from medical appointments, meetings, work or from getting things needed for daily living? No 10/26/2023 Sexually Active Control Partners Comments Yes Female Sex and Gender Information Value Date Recorded Sex Assigned at Not on file Legal Sex Male 11:36 PM EDT Gender Identity Not on file Sexual Orientation Not on file documented as of this encounter Functional Status * Is the person deaf or does he/she have serious difficulty hearing? Answer Date of Assessment Author No 10/07/2020 2:03 PM Alma Zhang MA * Is the person blind or does he/she have serious difficulty seeing even when wearing glasses? Answer Date of Assessment Author No 10/07/2020 2:03 PM Alma Zhang MA * Does this person have serious difficulty walking or climbing stairs? Answer Date of Assessment Author No 10/07/2020 2:03 PM Alma Zhang MA * Does this person have difficulty dressing or bathing? Answer Date of Assessment Author No 10/07/2020 2:03 PM Alma Zhang MA * Because of a physical, mental or emotional condition, does this person have difficulty doing errands alone such as visiting a doctor's office or shopping? Answer Date of Assessment Author No 10/07/2020 2:03 PM AUGUSTA Arabella Alma NANCY stewart documented as of this encounter Mental Status * Because of a physical, mental or emotional condition, does this person have serious difficulty concentrating, remembering or making decisions? Answer Entry Date Author No 10/07/2020 2:03 PM AUGUSTA Arabella Alma NANCY stewart documented in this encounter Miscellaneous Notes * Telephone Encounter - Latha Sanders CPhT - 12/27/2024 1:25 PM EDT Albuterol Inhaler - Refill request deferred to the office: Office documented Must Make Appointment or Needs Labwork on most recent Rx order and no appointment has been made. documented in this encounter Plan of Treatment Not on file documented as of this encounter Goals Goal Patient Goal Type Associated Problems Recent Progress Patient-Stated? Author Maintain a healthy diet, exercise regularly and maintain an ideal body weight General No Jake Matos MD Stay Tobacco Free Lifestyle No Jake Matos MD documented as of this encounter Visit Diagnoses Diagnosis COPD exacerbation (HCC) Obstructive chronic bronchitis with exacerbation COPD, moderate (HCC) Chronic airway obstruction, not elsewhere classified documented in this encounter Care Teams District Medical Examiner Relationship Specialty Start Date End Date Jake Matos MD [address] [place] [address] [place] [address] PCP - General Family Medicine 10/07/20 documented as of this encounter
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
--- NOTE | 2025-02-10 15:15 | CT_ITS ---
FINAL REPORT TECHNIQUE: Axial images were obtained through the chest without contrast. CLINICAL HISTORY: nodule COMPARISON: 09/12/2024 CTA chest FINDINGS: There are multiple calcified mediastinal and hilar lymph nodes. Calcifications are noted in the coronary arteries. The heart size is normal. There is no pericardial or pleural effusion. Limited images of the upper abdomen are unremarkable. There is biapical pleural and parenchymal scarring, particularly at the left apex. Irregular opacities in both lungs now appear more linear and less nodular, favored to be postinflammatory. IMPRESSION: Redemonstration of extensive parenchymal opacities, now more linear and less nodular. Findings are favored to be postinflammatory. Recommend follow-up in 6 months to ensure stability. Reviewed, Interpreted and Dictated by Phillip Castillo MD Transcribed by Tiffani Erickson Authenticated and . [facility]
== END 2025-02-10 23:59 | disposition home or self-care (01) ==
LOC: RAD 14:29
PROVIDERS: PCP Nurse Practitioner; Visit Provider Internal Medicine Pulmonary Disease
DX: R91.8 Other nonspecific abnormal finding of lung field (principal)
CPT/HCPCS: 71250

== ENCOUNTER 2025-02-14 09:46 | Outpatient (CLI) | payer MEDICAID, SELFPAY ==
--- OUTSIDE RECORDS SUMMARY | 2025-02-14 09:49 | XMS_ITS | Encounter Summary ---
Author Organization [place] [address] Care Team Providers Care Supervisor Shearing Name Role Phone Jake Matos MD Primary Care Provider [phone] Reason for Visit * Reason Comments Medication Refill Encounter Details Date Type Department Care Team (Late st Contact Info) Description 12/27/2024 Refill [facility] [place] [facility] [place] [address] Jake Matos MD [address] [place] [address] [place] [address] Medication Refill Social History Tobacco Use Types Packs/Day Years Used Date Smoking Tobacco: Former Cigarettes 1 42.1 1 - 06/28/2023 Smokeless Tobacco: Never Alcohol Use Standard Drinks/Week Comments Not Currently 0 (1 standard drink = 0.6 oz pur e alcohol) [facility] Utilities Answer Date Recorded In the past 12 months has [employer] electric, gas, oil, or water company threatened to shut off services in your home? No 10/26/2023 Overall Financial Resource Strain (CARDIA) Answe r Date Recorded How hard is it for you to pa y for the very basics like food, housing, medical care, and heating? Not hard at all 10/26/2023 PHQ-2 Answer Date Recorded PHQ-2 Total Score 0 10/26/2023 [facility] [place] of Occupat ional Health - Occupational Stress [...] things needed for daily living? No 05/31/2022 [facility] IP Transportation Answer D ate Recorded In [...] classified documented in this encounter Care Teams Supervisor Shearing Relationship Specialty Start Date End Date Jake Matos MD [address] [place] [address] [place] [address] PCP - General Family Medicine 10/07/20 documented as of this encounter
--- OUTSIDE RECORDS SUMMARY | 2025-02-14 09:49 | XMS_ITS | Clinical Summary ---
Author Organization [facility] Address One [facility] [place] [address] Phone Care Team Providers Care Engine Dynamometer Tester Name Role Phone Jake Matos MD Primary Care Provider [phone] Allergies No known active allergies Medications * [...] 25 mg Oral Tablet Sustained Release 24 hrIndications:Swimmer ye systolic congestive heart failure (HCC) Take [...] COPD, moderate 10/07/2020 Overview (10/07/2020): Greater than 70-posr-pexd smoking history -Anoro daily albuterol as needed [...] Description 12/27/2024 Refill [facility] [place] [facility] [address] [place] [phone] Jake Matos MD Medication Refill 11/27/2024 Refill [facility] [place] [facility] [address] [place] [phone] Jake Matos MD Medication Refill from Last [...] drink = 0.6 oz pur e alcohol) [facility] Utilities Answer Date Recorded In the [...] Date Recorded PHQ-2 Total Score 0 10/26/2023 [facility] [place] of Occupat ional Health - Occupational Stress [...] things needed for daily living? No 05/31/2022 [facility] IP Transportation Answer D ate [...] ve 10/07/2020 11:40 PM EST [facility] Blood VENOUS BLOOD / Unknown Venipuncture / Unknown 10/07/2020 2:40 PM EST 10/07/2020 2:43 PM EST Jake Matos MD HEMATOLOGY ORDERABLES Final Re sult [facility] [address] [facility] , [place] [address] from Last 3 Months or Most Recently Relevant to Health Maintenance Insurance Advance Directives For more information, please contact: [phone] * Full Code (Latest Code Status on File) Date Activated Date Inactivated Comments 10/26/2023 9:37 PM 10/28/2023 9:30 PM * Full Code Date Activated Date Inactivated Comments 05/28/2022 5:05 PM 06/03/2022 7:25 PM * Full Code Date Activated Date Inactivated Comments 05/28/2022 5:03 PM 05/28/2022 5:05 PM Care Teams Engine Dynamometer Tester Relationship Specialty Start Date End Date Jake Matos MD [address] [place] [address] [place] [address] PCP - General Family Medicine 10/07/20
[2025-02-14] MEDS: ALBUTEROL 0.083% 2.5 MG/3 ML NEB IH (10:45)
== END 2025-02-14 23:59 | disposition home or self-care (01) ==
LOC: RT 09:47
PROVIDERS: PCP Nurse Practitioner; Visit Provider Internal Medicine Pulmonary Disease
DX: J44.9 Chronic obstructive pulmonary disease, unspecified (principal); R94.2 Abnormal results of pulmonary function studies
CPT/HCPCS: 94060; 94618; 94726; 94729

== ENCOUNTER 2025-04-17 16:06 | Outpatient (CLI) | payer MEDICAID, SELFPAY ==
--- OUTSIDE RECORDS SUMMARY | 2025-04-17 16:08 | XMS_ITS | Clinical Summary ---
Author Organization [facility] Address One [facility] [place] [address] Phone Care Team Providers Care Industrial Servicer Name Role Phone Jake Matos MD Primary Care Provider [phone] Allergies No known active allergies Medications * [...] 25 mg Oral Tablet Sustained Release 24 hrIndications:Interior Decorator Paperhanging ye systolic congestive heart failure (HCC) Take [...] COPD, moderate 10/07/2020 Overview (10/07/2020): Greater than 26-meig-vrpk smoking history -Anoro daily albuterol as needed [...] Encounters Date Type Department Care Team Description 04/03/2025 Patient Outreach [facility] [address] [place] [address] Jake Matos MD Central Order Completion Outreach (LDCT) from Last 3 Months Immunizations Immunization Administration [...] drink = 0.6 oz pur e alcohol) [facility] Utilities Answer Date Recorded In the [...] Date Recorded PHQ-2 Total Score 0 10/26/2023 [facility] [place] of Occupat ional Health - Occupational Stress [...] things needed for daily living? No 05/31/2022 [facility] IP Transportation Answer D ate Recorded In [...] 60-74 years 1-dose series) 2024 Influenza Vaccine (#1) 2025 Hepatitis C Screening Completed 10/07/2020 Hepatitis [...] Unremarkable visualized upper abdominal structures. Procedure Note Amador Keller DO - 12/23/2020 CT CHEST WITHOUT CONTRAST, [...] Non-Reacti ve 10/07/2020 11:40 PM EST [facility] Blood VENOUS BLOOD / Unknown Venipuncture / Unknown 10/07/2020 2:40 PM EST 10/07/2020 2:43 PM EST Jake Matos MD HEMATOLOGY ORDERABLES Final Re sult [facility] [address] [facility] , [address] [place] [id number] from Last 3 Months or Most Recently Relevant to Health Maintenance Insurance Advance Directives For more information, please contact: [phone] * Full Code (Latest Code Status on File) Date Activated Date Inactivated Comments 10/26/2023 9:37 PM 10/28/2023 9:30 PM * Full Code Date Activated Date Inactivated Comments 05/28/2022 5:05 PM 06/03/2022 7:25 PM * Full Code Date Activated Date Inactivated Comments 05/28/2022 5:03 PM 05/28/2022 5:05 PM Care Teams Industrial Servicer Relationship Specialty Start Date End Date Jake Matos MD [address] [place] [address] [place] [address] PCP - General Family Medicine 10/07/20
--- OUTSIDE RECORDS SUMMARY | 2025-04-17 16:08 | XMS_ITS | Encounter Summary ---
Author Organization [place] [address] Care Team Providers Care Hot Bread Baker Name Role Phone Jake Matos MD Primary Care Provider [phone] Reason for Visit * Reason Onset Date Comments Central Order Completion Outreach 04/03/2025 LDCT Encounter Details Date Type Department Care Team (Late st Contact Info) Description 04/03/2025 Patient Outreach [facility] [address] [place] [address] Jake Matos MD [address] [place] [address] [address] [place] [id number] Central Order Completion Outreach (LDCT) Social History Tobacco Use Types Packs/Day Years Used Date Smoking Tobacco: Former Cigarettes 1 42.1 1 - 06/28/2023 Smokeless Tobacco: Never Alcohol Use Standard Drinks/Week Comments Not Currently 0 (1 standard drink = 0.6 oz pur e alcohol) [facility] Utilities Answer Date Recorded In the past 12 months has e electric, gas, oil, or water company threatened to shut off services in your home? No 10/26/2023 Overall Financial Resource Strain (CARDIA) Answe r Date Recorded How hard is it for you to pa y for the very basics like food, housing, medical care, and heating? Not hard at all 10/26/2023 PHQ-2 Answer Date Recorded PHQ-2 Total Score 0 10/26/2023 [facility] [place] of Occupat ional Health - Occupational Stress [...] things needed for daily living? No 05/31/2022 [facility] IP Transportation Answer D ate Recorded In [...] of Assessment Author No 10/07/2020 2:03 PM EST Arabella, A terry, MA * Does this person have difficulty dressing or bathing? Answer Date of Assessment Author No 10/07/2020 2:03 PM [place] ArabellaAlma terryNANCY * Because of a physical, mental or emotional condition, does this person have difficulty doing errands alone such as visiting a doctor's office or shopping? Answer Date of Assessment Author No 10/07/2020 2:03 PM Alma ZhangNANCY documented as of this encounter Mental Status * Because of a physical, mental or emotional condition, does this person have serious difficulty concentrating, remembering or making decisions? Answer Entry Date Author No 10/07/2020 2:03 PM Alma Zhang NANCY documented in this encounter Progress Notes * Grisel Ludwig RN - 04/10/2025 3:56 PM EDT SEP Order Completion Outcome Tracking Contact Attempt:: Final LDCT Outcome:: Left Message with Individual * Gaviota Danielle RN - 04/03/2025 2:22 PM EDT SEP Order Completion Outcome Tracking Contact Attempt:: First LDCT Outcome:: No Answer, Unable to Reach documented in this encounter Plan of Treatment Not on file documented as of this encounter Goals Goal Patient Goal Type Associated Problems Recent Progress Patient-Stated? Author Maintain a healthy diet, exercise regularly and maintain an ideal body weight General No Jake Matos MD Stay Tobacco Free Lifestyle No Jake Matos MD documented as of this encounter Visit Diagnoses Not on filedocumented in this encounter Care Teams Hot Bread Baker Relationship Specialty Start Date End Date Jake Matos MD [address] [place] [address] [place] [address] PCP - General Family Medicine 10/07/20 documented as of this encounter
[2025-04-17 16:47] LABS: Hematocrit 45.3 % (42.0-52.0); Hemoglobin 13.7 g/dL (14.1-18.0); Immature Granulocytes % 0.8 %; Mean Corpuscular HGB Conc 30.2 g/dL (31.8-35.4); Mean Corpuscular Hemoglobin 28.0 pg (27.0-31.2); Mean Corpuscular Volume 92.4 fl (80-94); Nucleated Red Blood Cells % 0 %; Platelet Count 174 K/mm3 (142-424); Red Blood Count 4.90 M/mm3 (4.60-6.20); Red Cell Distribution Width-SD 46.8 fL; White Blood Count 9.8 K/mm3 (4.8-10.8)
[2025-04-17 17:28] LABS: RBC Morphology Normal; Total Cells Counted 100
[2025-04-17 18:35] LABS: Albumin Level 4.2 g/dl (3.5-5.0); Chloride 102 mmol/L (98-107); Potassium 4.0 mmoL/L (3.5-5.1); Sodium 142 mmol/L (136-145)
[2025-04-17 18:37] LABS: Blood Urea Nitrogen 15 mg/dl (9-20); Creatinine,Serum 0.70 mg/dl (0.66-1.25); Estimated Glomerular Filt Rate 115 ml/min (>60); GFR (African American) 139 ML/MIN (>60)
[2025-04-17 18:38] LABS: Alanine Aminotransferase 16 U/L (12-78); Albumin/Globulin Ratio 1.6 (1.1-1.8); Alkaline Phosphatase 93 U/L (38-126); Anion Gap 10.0 mEq/L (5-15); Aspartate Amino Transferase 26 U/L (17-59); Bilirubin,Total 0.6 mg/dl (0.2-1.3); Calcium 9.3 mg/dl (8.4-10.2); Carbon Dioxide 34 mmol/L (22.0-30.0); Globulin 2.6 g/dL (1.3-3.2); Glucose 104 mg/dl (74-100); Total Protein,Serum 6.8 g/dl (6.3-8.2)
[2025-04-17 18:43] LABS: C-Reactive Protein 21.1 mg/L (0-4)
[2025-04-19 04:23] LABS: Hep A Ab, Total Negative (Negative); Hep B Core Ab, Total Negative (Negative); Hep B Surface Ab, Qual Non Reactive (.)
== END 2025-04-17 23:59 | disposition home or self-care (01) ==
LOC: LAB 16:07
PROVIDERS: PCP Nurse Practitioner; Visit Provider Internal Medicine Pulmonary Disease
DX: J84.9 Interstitial pulmonary disease, unspecified (principal); J45.909 Unspecified asthma, uncomplicated; D84.821 Immunodeficiency due to drugs; D86.2 Sarcoidosis of lung with sarcoidosis of lymph nodes
CPT/HCPCS: 36415; 80053; 85007; 85025; 86140; 86480; 86706

== ENCOUNTER 2025-06-18 15:03 | Outpatient (CLI) | payer MEDICAID, SELFPAY ==
[2025-06-18 15:35] LABS: Hematocrit 44.8 % (42.0-52.0); Hemoglobin 13.9 g/dL (14.1-18.0); Mean Corpuscular HGB Conc 31.0 g/dL (31.8-35.4); Mean Corpuscular Hemoglobin 28.8 pg (27.0-31.2); Mean Corpuscular Volume 92.9 fl (80-94); Platelet Count 184 K/mm3 (142-424); Red Blood Count 4.82 M/mm3 (4.60-6.20); White Blood Count 9.6 K/mm3 (4.8-10.8)
[2025-06-18 16:07] LABS: Alanine Aminotransferase 54 U/L (12-78); Albumin Level 4.0 g/dl (3.5-5.0); Albumin/Globulin Ratio 1.6 (1.1-1.8); Alkaline Phosphatase 101 U/L (38-126); Anion Gap 13.1 mEq/L (5-15); Aspartate Amino Transferase 53 U/L (17-59); Bilirubin,Total 0.8 mg/dl (0.2-1.3); Blood Urea Nitrogen 16 mg/dl (9-20); Calcium 9.2 mg/dl (8.4-10.2); Carbon Dioxide 32 mmol/L (22.0-30.0); Chloride 100 mmol/L (98-107); Creatinine,Serum 0.80 mg/dl (0.66-1.25); Estimated Glomerular Filt Rate 99 ml/min (>60); GFR (African American) 119 ML/MIN (>60); Globulin 2.5 g/dL (1.3-3.2); Glucose 112 mg/dl (74-100); Potassium 4.1 mmoL/L (3.5-5.1); Sodium 141 mmol/L (136-145); Total Protein,Serum 6.5 g/dl (6.3-8.2)
[2025-06-18 16:13] LABS: C-Reactive Protein 20.2 mg/L (0-4)
[2025-06-18 17:37] LABS: RBC Morphology Normal; Total Cells Counted 100
== END 2025-06-18 23:59 | disposition home or self-care (01) ==
LOC: LAB 15:03
PROVIDERS: PCP Nurse Practitioner; Visit Provider Internal Medicine Pulmonary Disease
DX: J84.9 Interstitial pulmonary disease, unspecified (principal)
CPT/HCPCS: 36415; 80053; 85007; 85014; 85018; 85048; 85049; 86140